=== PATIENT | female | born 1990 | race Caucasian/White ===

== ENCOUNTER 2017-03-22 00:24 | Emergency (ER) | payer MEDICAID ==
[2017-03-22] MEDS ORDERED: Doxycycline 100 MG Tab PO ONE ×2 (00:51→01:03)
[2017-03-22] MEDS ORDERED: Ketorolac 60 MG/2 ML SDV IM ONE (00:53)
[2017-03-22 00:54] VITALS: BP 139/90
--- NOTE | 2017-03-22 00:59 | EDM.PDOC ---
ED HPI GENERAL MEDICAL PROBLEM - General Chief Complaint: Headache Stated Complaint: HEAD AND MOUTH PAIN Time Seen by Provider: 03/22/17 00:47 Source of Information: Reports: Patient, Family History Limitations: Reports: No Limitations - History of Present Illness INITIAL COMMENTS - FREE TEXT/NARRATIVE: 26 y.o.w.f -smoker-came to the ed because of headache and gum pain. Pt has no money going to the dentist. Pt stated she hither head at work a few weeks ago. As per her friend, pt was here for same in the past and gets a shot and Abx. No N/v/D or other acute medical issues at this time. Onset: Unknown/Unsure Onset Date: 02/26/17 Onset Time: 10:00 Duration: Week(s): Location: Reports: Head, Face Quality: Reports: Ache Severity: Moderate Improves with: Reports: Cold Therapy Associated Symptoms: Reports: Other (tooth aches) mouth and head Pain Score (Numeric/FACES): 10 - Related Data Allergies Allergy/AdvReac Type Severity Reaction Status Date / Time amoxicillin Allergy Cannot Verified 03/22/17 01:26 Remember azithromycin Allergy Cannot Verified 03/22/17 01:26 [From Zithromax Z-Mehul] Remember cefuroxime axetil Allergy Cannot Verified 03/22/17 01:26 [From Ceftin] Remember ciprofloxacin [From Cipro] Allergy Cannot Verified 03/22/17 01:26 Remember ciprofloxacin HCl Allergy Cannot Verified 03/22/17 01:26 [From Cipro] Remember [place] And Derivatives Allergy Anaphylactic Verified 03/22/17 01:26 Shock dicloxacillin Allergy Cannot Verified 03/22/17 01:26 Remember fluticasone propionate Allergy Cannot Verified 03/22/17 01:26 [From Advair Diskus] Remember guaifenesin Allergy Cannot Verified 03/22/17 01:26 Remember naproxen Allergy Cannot Verified 03/22/17 01:26 Remember omeprazole [From Prilosec] Allergy Cannot Verified 03/22/17 01:26 Remember omeprazole magnesium Allergy Cannot Verified 03/22/17 01:26 [From Prilosec] Remember Penicillins Allergy Cannot Verified 03/22/17 01:26 Remember salmeterol xinafoate Allergy Cannot Verified 03/22/17 01:26 [From Advair Diskus] Remember shellfish derived Allergy Anaphylactic Verified 03/22/17 01:26 Shock Sulfa (Sulfonamide Allergy Cannot Verified 03/22/17 01:26 Antibiotics) Remember venom-honey bee Allergy Anaphylactic Verified 03/22/17 01:26 [bee venom (honey bee)] Shock FLU VACCINE Allergy Cannot Uncoded 03/22/17 01:26 Remember TACO SEASONING Allergy Cannot Uncoded 03/22/17 01:26 Remember Home Meds: Home Meds NK [No Known Home Meds] 03/22/17 [History] Past Medical History Musculoskeletal History: Reports: 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) Other Musculoskeletal History: hx of ankle, hand fractures; knee and foot dislocation Endocrine/Metabolic History: Reports: 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) Other Endocrine/Metabolic History: states that she is always having hypoglycemia - Past Surgical History HEENT Surgical History: Reports: Tonsillectomy GI Surgical History: Reports: Cholecystectomy Social & Family History - Family History Family Medical History: Noncontributory - Tobacco Use Smoking Status *Q: Current Every Day Smoker Years of Tobacco use: 20 Packs/Tins Daily: 1.5 Used Tobacco, but Quit: No Second Hand Smoke Exposure: Yes - Recreational Drug Use Recreational Drug Use: No ED ROS GENERAL - Review of Systems Review Of Systems: See Below Constitutional: Reports: No Symptoms HEENT: Reports: Other (tooth ache) Respiratory: Reports: No Symptoms Cardiovascular: Reports: No Symptoms Endocrine: Reports: No Symptoms GI/Abdominal: Reports: No Symptoms : Reports: No Symptoms Musculoskeletal: Reports: No Symptoms Skin: Reports: No Symptoms Neurological: Reports: No Symptoms Psychiatric: Reports: No Symptoms Hematologic/Lymphatic: Reports: No Symptoms Immunologic: Reports: No Symptoms - Physical Exam Exam: See Below Exam Limited By: No Limitations General Appearance: Alert, WD/WN, No Apparent Distress Eye Exam: Bilateral Eye: Normal Inspection Ears: Normal External Exam Nose: Normal Inspection, Normal Mucosa Throat/Mouth: Other (poor dentition) Head Exam: Atraumatic, Normocephalic Neck: Normal Inspection, Supple, Non-Tender, Full Range of Motion Respiratory/Chest: No Respiratory Distress, Lungs Clear, Normal Breath Sounds, No Accessory Muscle Use Cardiovascular: Normal Peripheral Pulses, Regular Rate, Rhythm, No Edema GI/Abdominal: Normal Bowel Sounds, Soft, Non-Tender, No Organomegaly (Female) Exam: Deferred Rectal (Female) Exam: Deferred Neuro Exam (Abbreviated): Alert, Oriented, CN II-XII Intact, Normal Cognition, Normal Gait, Normal Reflexes, No Motor/Sensory Deficits Back Exam: Normal Inspection, Full Range of Motion Extremities: Normal Inspection, Normal Range of Motion, Non-Tender, No Pedal Edema, Normal Capillary Refill Psychiatric: Normal Affect, Normal Mood Skin Exam: Warm, Dry, Intact, Normal Color, No Rash Course - Vital Signs Text/Narrative:: 26 y.o.w.f -smoker-came to the ed because of headache and gum pain. Pt has no money going to the dentist. Pt stated she hither head at work a few weeks ago. As per her friend, pt was here for same in the past and gets a shot and Abx. No N/v/D or other acute medical issues at this time. PE: Poor dentition. Pt is texting, watching her phone during the entire HPI and physical exam Labs/Imaging: Not indicated Impression: Gingivitis/poor dentition Tx: Doxycyclin, Toradol Reexam: Improved Plan: D/C with instructions Last Recorded V/S: Last Vital Signs Temp 36.9 C 03/22/17 00:47 Pulse 64 03/22/17 00:47 Resp 18 03/22/17 00:47 BP 139/90 03/22/17 00:47 Pulse Ox 99 03/22/17 00:47 - Orders/Labs/Meds Meds: Medications Discontinued Medications Generic Name Dose Route Start Last Admin Trade Name Freq PRN Reason Stop Dose Admin Doxycycline Hyclate 200 mg 03/22/17 00:51 03/22/17 01:08 Vibra-Tabs PO 03/22/17 00:52 200 mg ONETIME ONE Administration Doxycycline Hyclate 1,000 mg 03/22/17 01:03 Vibra-Tabs PO 03/22/17 01:04 .STK-MED ONE Ketorolac Tromethamine 60 mg 03/22/17 00:53 03/22/17 01:00 Toradol IM 03/22/17 00:54 60 mg ONETIME ONE Administration Departure - Departure Time of Disposition: 01:08 Disposition: Home, Self-Care 01 Condition: good Clinical Impression: Gingivitis - Discharge Information Referrals: PCP,None [Primary Care Provider] - Forms: ED Department Discharge, Return to Work/School Form Additional Instructions: Please f/u with your dentition a.s.a.p, please take the meds as recommended, please come back if your symptoms get worse acutely.
== END 2017-03-22 01:15 | disposition home or self-care (01) ==
LOC: FB.ED 00:24
DX: K05.10 Chronic gingivitis, plaque induced (principal); F17.210 Nicotine dependence, cigarettes, uncomplicated; Z90.49 Acquired absence of other specified parts of digestive tract; Z98.890 Other specified postprocedural states; Z88.0 Allergy status to penicillin; Z88.1 Allergy status to other antibiotic agents; Z88.2 Allergy status to sulfonamides; Z88.7 Allergy status to serum and vaccine; Z88.8 Allergy status to other drugs, medicaments and biological substances; Z91.030 Bee allergy status
CPT/HCPCS: 96372; 99282; A9270; J1885

== ENCOUNTER 2017-05-01 16:44 | Emergency (ER) | payer MEDICAID ==
[2017-05-01] MEDS ORDERED: Sodium Chloride 0.9% 1,000 ML IV ONE ×2 (17:07→18:36)
[2017-05-01] MEDS ORDERED: Ondansetron 4 MG/2 ML SDV IVPUSH ONE (17:09)
[2017-05-01] MEDS ORDERED: Pantoprazole 40 MG Vial IVPUSH ONE (17:13)
[2017-05-01] MEDS ORDERED: Ketorolac 30 MG/ML SDV IVPUSH ONE (17:53)
[2017-05-01] MEDS ORDERED: Potassium Chloride 20 MEQ Tab.ER PO ONE (18:37)
--- NOTE | 2017-05-01 18:44 | EDM.PDOC ---
ED HPI GENERAL MEDICAL PROBLEM - General Chief Complaint: Gastrointestinal Problem Stated Complaint: NAUSEA, VOMITING, H/A Time Seen by Provider: 05/01/17 16:50 Source of Information: Reports: Patient History Limitations: Reports: No Limitations - History of Present Illness INITIAL COMMENTS - FREE TEXT/NARRATIVE: 26 y.o.w. Onset: Sudden Onset Date: 05/01/17 Onset Time: 12:00 Location: Reports: Abdomen Quality: Reports: Burning Severity: Moderate Improves with: Reports: Medication Worsens with: Reports: Eating Context: Reports: Other (possible food poisoning) Associated Symptoms: Reports: Loss of Appetite, Nausea/Vomiting Treatments UTILITY SPECIALIST: Reports: Other (see below) (none) - Related Data Allergies Allergy/AdvReac Type Severity Reaction Status Date / Time amoxicillin Allergy Cannot Verified 05/01/17 17:02 Remember azithromycin Allergy Cannot Verified 05/01/17 17:02 [From Zithromax Z-Mehul] Remember cefuroxime axetil Allergy Cannot Verified 05/01/17 17:02 [From Ceftin] Remember ciprofloxacin [From Cipro] Allergy Cannot Verified 05/01/17 17:02 Remember ciprofloxacin HCl Allergy Cannot Verified 05/01/17 17:02 [From Cipro] Remember [place] And Derivatives Allergy Anaphylactic Verified 05/01/17 17:02 Shock dicloxacillin Allergy Cannot Verified 05/01/17 17:02 Remember fluticasone propionate Allergy Cannot Verified 05/01/17 17:02 [From Advair Diskus] Remember guaifenesin Allergy Cannot Verified 05/01/17 17:02 Remember naproxen Allergy Cannot Verified 05/01/17 17:02 Remember omeprazole [From Prilosec] Allergy Cannot Verified 05/01/17 17:02 Remember omeprazole magnesium Allergy Cannot Verified 05/01/17 17:02 [From Prilosec] Remember Penicillins Allergy Cannot Verified 05/01/17 17:02 Remember salmeterol xinafoate Allergy Cannot Verified 05/01/17 17:02 [From Advair Diskus] Remember shellfish derived Allergy Anaphylactic Verified 05/01/17 17:02 Shock Sulfa (Sulfonamide Allergy Cannot Verified 05/01/17 17:02 Antibiotics) Remember venom-honey bee Allergy Anaphylactic Verified 05/01/17 17:02 [bee venom (honey bee)] Shock FLU VACCINE Allergy Cannot Uncoded 05/01/17 17:02 Remember TACO SEASONING Allergy Cannot Uncoded 05/01/17 17:02 Remember Home Meds: Home Meds Ibuprofen [IJP: Ibuprofen] 600 mg PO .EVERY 8 HOURS PRN 05/01/17 [History] Ondansetron [Zofran ODT] 4 mg PO Q6H PRN #10 tab.dis 05/01/17 [Rx] Past Medical History 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: Reports: Asthma Musculoskeletal History: Reports: 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) Other Musculoskeletal History: hx of ankle, hand fractures; knee and foot dislocation Endocrine/Metabolic History: Reports: 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) Other Endocrine/Metabolic History: states that she is always having hypoglycemia - Past Surgical History HEENT Surgical History: Reports: Tonsillectomy GI Surgical History: Reports: Cholecystectomy Neurological Surgical History: Reports: 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) Other Neurological Surgeries/Procedures: states she had fluid drained from her brain one time Social & Family History - Family History Family Medical History: Noncontributory - Tobacco Use Smoking Status *Q: Current Every Day Smoker Years of Tobacco use: 10 Packs/Tins Daily: 1 Used Tobacco, but Quit: No Second Hand Smoke Exposure: Yes - Caffeine Use Caffeine Use: Reports: Energy Drinks - Recreational Drug Use Recreational Drug Use: No Drug Use in Last 12 Months: No Recreational Drug Type: Reports: Cocaine, LSD (Acid) ED ROS GENERAL - Review of Systems Review Of Systems: See Below Constitutional: Reports: No Symptoms, Weakness, Decreased Appetite HEENT: Reports: No Symptoms Respiratory: Reports: No Symptoms Cardiovascular: Reports: No Symptoms Endocrine: Reports: No Symptoms GI/Abdominal: Reports: Nausea, Vomiting : Reports: No Symptoms Musculoskeletal: Reports: No Symptoms Skin: Reports: No Symptoms Neurological: Reports: No Symptoms Psychiatric: Reports: No Symptoms Hematologic/Lymphatic: Reports: No Symptoms Immunologic: Reports: No Symptoms ED EXAM, GI/ABD - Physical Exam Exam: See Below Exam Limited By: No Limitations General Appearance: Alert, WD/WN, Moderate Distress Eyes: Bilateral: Normal Appearance Ears: Normal External Exam, Normal Canal Nose: Normal Inspection, Normal Mucosa Throat/Mouth: Other (poor dentition, dry mucoal membrane) Head: Atraumatic, Normocephalic Neck: Normal Inspection, Supple, Non-Tender, Full Range of Motion Respiratory/Chest: No Respiratory Distress, Lungs Clear, Normal Breath Sounds, Chest Non-Tender Cardiovascular: Normal Peripheral Pulses, Regular Rate, Rhythm GI/Abdominal: Tenderness (epigastric, minor) (Female) Exam: Deferred Rectal (Female) Exam: Deferred Back Exam: Normal Inspection, Full Range of Motion Extremities: Normal Inspection, Normal Range of Motion, Non-Tender, No Pedal Edema Neurological: Alert, Oriented, CN II-XII Intact, Normal Cognition, Normal Gait Psychiatric: Normal Affect, Normal Mood Skin Exam: Warm, Dry, Intact, Normal Color, No Rash Lymphatic: No Adenopathy Course - Vital Signs Last Recorded V/S: Last Vital Signs Temp 36.9 C 05/01/17 17:07 Pulse 80 05/01/17 17:07 Resp 16 05/01/17 16:50 BP 113/73 05/01/17 16:50 Pulse Ox 97 05/01/17 16:50 - Orders/Labs/Meds Orders: Active Orders 24 hr Category Date Time Status Sodium Chloride 0.9% [Normal Saline] 1,000 ml Med 05/01/17 18:36 Active IV .BOLUS Medication Orders Sodium Chloride (Normal Saline) 1,000 mls @ 999 drops/hr IV .BOLUS ONE Stop: 05/02/17 09:36 Last Admin: 05/01/17 18:38 Dose: 999 drops/hr Labs: Laboratory Tests 05/01/17 05/01/17 05/01/17 Range/Units 17:07 17:07 17:07 WBC (4.5-12.0) X10-3/uL RBC (3.23-5.20) x10(6)uL Hgb (11.5-15.5) g/dL Hct (30.0-51.3) % MCV (80-96) fL MCH (27.7-33.6) pg MCHC (32.2-35.4) g/dL RDW (11.5-15.5) % Plt Count (125-369) X10(3)uL MPV (7.4-10.4) fL Neut % (Auto) (46-82) % Lymph % (Auto) (13-37) % [place] % (Auto) (4-12) % Eos % (Auto) (1.0-5.0) % Baso % (Auto) (0-2) % Neut # (Auto) (1.6-8.3) # Lymph # (Auto) (0.6-5.0) # [place] # (Auto) (0.0-1.3) # Eos # (Auto) (0.0-0.8) # Baso # (Auto) (0.0-0.2) # Sodium (135-145) mmol/L Potassium (3.5-5.3) mmol/L Chloride (100-110) mmol/L Carbon Dioxide (23-29) mmol/L BUN (5-20) mg/dL Creatinine (0.6-1.3) mg/dL Est Cr Clr Drug Dosing mL/min Estimated GFR (MDRD) (>60) BUN/Creatinine Ratio (9-20) Glucose (80-116) mg/dL Calcium (8.6-10.2) mg/dL Urine Color Yellow (YELLOW) Urine Appearance Slightly cloudy (CLEAR) Urine pH 5.0 (5.0-6.5) Ur Specific [place] 1.030 H (1.010-1.025) Urine Protein Negative (NEGATIVE) mg/dL Urine Glucose (UA) Normal (NEGATIVE) mg/dL Urine Ketones Negative (NEGATIVE) mg/dL Urine Occult Blood Large H (NEGATIVE) Urine Nitrite Negative (NEGATIVE) Urine Bilirubin Negative (NEGATIVE) Urine Urobilinogen Normal (NEGATIVE) mg/dL Ur Leukocyte Esterase Negative (NEGATIVE) Urine RBC 5-10 (0) Urine WBC 0-5 (0) Ur Squamous Epith Cells Few H (NS,R,O) Urine Bacteria Few H (NS) Urine HCG, Qual Negative (NEGATIVE) Urine Opiates Screen Negative (NEGATIVE) Ur Oxycodone Screen Negative (NEGATIVE) Ur Propoxyphene Screen Negative (NEGATIVE) Ur Barbituates Screen Negative (NEGATIVE) Ur Tricyclics Screen Negative (NEGATIVE) Ur Phencyclidine Scrn Negative (NEGATIVE) Ur Amphetamine Screen Negative (NEGATIVE) Urine MDMA Screen Negative (NEGATIVE) U Benzodiazepines Scrn Negative (NEGATIVE) U Cocaine Metab Screen Negative (NEGATIVE) U Marijuana (THC) Screen Negative (NEGATIVE) 05/01/17 05/01/17 Range/Units 17:30 17:30 WBC 11.0 (4.5-12.0) X10-3/uL RBC 4.27 (3.23-5.20) x10(6)uL Hgb 12.3 (11.5-15.5) g/dL Hct 37.1 (30.0-51.3) % MCV 86.9 (80-96) fL MCH 28.9 (27.7-33.6) pg MCHC 33.2 (32.2-35.4) g/dL RDW 13.8 (11.5-15.5) % Plt Count 277 (125-369) X10(3)uL MPV 9.2 (7.4-10.4) fL Neut % (Auto) 57.1 (46-82) % Lymph % (Auto) 32.4 (13-37) % [place] % (Auto) 8.1 (4-12) % Eos % (Auto) 2 (1.0-5.0) % Baso % (Auto) 1 (0-2) % Neut # (Auto) 6.2 (1.6-8.3) # Lymph # (Auto) 3.6 (0.6-5.0) # [place] # (Auto) 0.9 (0.0-1.3) # Eos # (Auto) 0.2 (0.0-0.8) # Baso # (Auto) 0.1 (0.0-0.2) # Sodium 140 (135-145) mmol/L Potassium 3.3 L (3.5-5.3) mmol/L Chloride 107 (100-110) mmol/L Carbon Dioxide 27 (23-29) mmol/L BUN 10 (5-20) mg/dL Creatinine 0.5 L (0.6-1.3) mg/dL Est Cr Clr Drug Dosing 188.90 mL/min Estimated GFR (MDRD) > 60 (>60) BUN/Creatinine Ratio 20.0 (9-20) Glucose 90 (80-116) mg/dL Calcium 8.9 (8.6-10.2) mg/dL Urine Color (YELLOW) Urine Appearance (CLEAR) Urine pH (5.0-6.5) Ur Specific [place] (1.010-1.025) Urine Protein (NEGATIVE) mg/dL Urine Glucose (UA) (NEGATIVE) mg/dL Urine Ketones (NEGATIVE) mg/dL Urine Occult Blood (NEGATIVE) Urine Nitrite (NEGATIVE) Urine Bilirubin (NEGATIVE) Urine Urobilinogen (NEGATIVE) mg/dL Ur Leukocyte Esterase (NEGATIVE) Urine RBC (0) Urine WBC (0) Ur Squamous Epith Cells (NS,R,O) Urine Bacteria (NS) Urine HCG, Qual (NEGATIVE) Urine Opiates Screen (NEGATIVE) Ur Oxycodone Screen (NEGATIVE) Ur Propoxyphene Screen (NEGATIVE) Ur Barbituates Screen (NEGATIVE) Ur Tricyclics Screen (NEGATIVE) Ur Phencyclidine Scrn (NEGATIVE) Ur Amphetamine Screen (NEGATIVE) Urine MDMA Screen (NEGATIVE) U Benzodiazepines Scrn (NEGATIVE) U Cocaine Metab Screen (NEGATIVE) U Marijuana (THC) Screen (NEGATIVE) Meds: Medications Generic Name Dose Route Start Last Admin Trade Name Freq PRN Reason Stop Dose Admin Sodium Chloride 1,000 mls @ 999 drops/hr 05/01/17 18:36 05/01/17 18:38 Normal Saline IV 05/02/17 09:36 999 drops/hr .BOLUS ONE Administration Discontinued Medications Generic Name Dose Route Start Last Admin Trade Name Freq PRN Reason Stop Dose Admin Sodium Chloride 1,000 mls @ 999 mls/hr 05/01/17 17:07 05/01/17 17:30 Normal Saline IV 05/01/17 18:07 999 mls/hr .BOLUS ONE Administration Ketorolac Tromethamine 30 mg 05/01/17 17:53 05/01/17 18:00 Toradol IVPUSH 05/01/17 17:54 30 mg ONETIME ONE Administration Ondansetron HCl 8 mg 05/01/17 17:09 05/01/17 17:30 Zofran IVPUSH 05/01/17 17:10 8 mg ONETIME ONE Administration Pantoprazole Sodium 40 mg 05/01/17 17:13 05/01/17 17:36 Protonix Iv IVPUSH 05/01/17 17:14 40 mg ONETIME ONE Administration Potassium Chloride 40 meq 05/01/17 18:37 05/01/17 18:45 Klor-Con M20 PO 05/01/17 18:38 40 meq ONETIME ONE Administration Departure - Departure Time of Disposition: 18:46 Disposition: Home, Self-Care 01 Condition: Good Clinical Impression: Dehydration, Hypokalemia Acute gastritis without bleeding Qualifiers: Gastritis type: other gastritis Qualified Code(s): K29.00 - Acute gastritis without bleeding - Discharge Information Prescriptions: Ondansetron [Zofran ODT] 4 mg PO Q6H PRN #10 tab.dis PRN Reason: N/V Referrals: PCP,None [Primary Care Provider] - Forms: ED Department Discharge Additional Instructions: Please diet as tolerated, please increase water increase, please follow up, please come back if your symptoms get wore acutely. - My Orders Last 24 Hours: My Active Orders 05/01/17 18:36 Sodium Chloride 0.9% [Normal Saline] 1,000 ml IV .BOLUS - Assessment/Plan Last 24 Hours: My Active Orders 05/01/17 18:36 Sodium Chloride 0.9% [Normal Saline] 1,000 ml IV .BOLUS
[2017-05-01 19:49] VITALS: BP 120/88
== END 2017-05-01 19:48 | disposition home or self-care (01) ==
LOC: FB.ED 16:44
DX: K29.00 Acute gastritis without bleeding (principal); E87.6 Hypokalemia; E86.0 Dehydration; J45.909 Unspecified asthma, uncomplicated; F17.210 Nicotine dependence, cigarettes, uncomplicated; Z88.1 Allergy status to other antibiotic agents; Z88.0 Allergy status to penicillin; Z88.2 Allergy status to sulfonamides; Z88.8 Allergy status to other drugs, medicaments and biological substances; Z98.890 Other specified postprocedural states; Z90.49 Acquired absence of other specified parts of digestive tract; Z90.89 Acquired absence of other organs
CPT/HCPCS: 36415; 80048; 80305; 81001; 81025; 85025; 96361; 96374; 96375; 99284; A9270; C9113; J1885; J2405; J7040

== ENCOUNTER 2017-06-05 16:48 | Emergency (ER) | payer OTHER, MEDICAID ==
--- NOTE | 2017-06-05 17:01 | EDM.PDOC ---
ED HPI GENERAL MEDICAL PROBLEM - General Stated Complaint: BODY ACHES, HEAD ACHE, NAUSEOUS Time Seen by Provider: 06/05/17 17:01 Source of Information: Reports: Patient History Limitations: Reports: No Limitations - History of Present Illness INITIAL COMMENTS - FREE TEXT/NARRATIVE: 27 yo F presenting to the ER with 1-2 day h/o body aches, joint aches, fatigue, generalized weakness and feeling unwell. Reports that symptoms started insidiously and got progressively worse. No chest pain, abdominal pain but does report right Flank/ Lower back pain. [place] nauseous and vomited x 1 Has been feeling unwell. Presented to the ER on account of worsening of symptoms. Onset: Today Onset Date: 06/05/17 Duration: Day(s): Location: Reports: Generalized Quality: Reports: Ache Severity: Moderate Associated Symptoms: Reports: Cough, Loss of Appetite, Malaise, Nausea/Vomiting , Weakness RUQ abdomen Pain Score (Numeric/FACES): 4 - Related Data Allergies Allergy/AdvReac Type Severity Reaction Status Date / Time amoxicillin Allergy Cannot Verified 06/05/17 17:19 Remember azithromycin Allergy Cannot Verified 06/05/17 17:19 [From Zithromax Z-Mehul] Remember cefuroxime axetil Allergy Cannot Verified 06/05/17 17:19 [From Ceftin] Remember ciprofloxacin [From Cipro] Allergy Cannot Verified 06/05/17 17:19 Remember ciprofloxacin HCl Allergy Cannot Verified 06/05/17 17:19 [From Cipro] Remember [place] And Derivatives Allergy Anaphylactic Verified 06/05/17 17:19 Shock dicloxacillin Allergy Cannot Verified 06/05/17 17:19 Remember fluticasone propionate Allergy Cannot Verified 06/05/17 17:19 [From Advair Diskus] Remember guaifenesin Allergy Cannot Verified 06/05/17 17:19 Remember naproxen Allergy Cannot Verified 06/05/17 17:19 Remember omeprazole [From Prilosec] Allergy Cannot Verified 06/05/17 17:19 Remember omeprazole magnesium Allergy Cannot Verified 06/05/17 17:19 [From Prilosec] Remember Penicillins Allergy Cannot Verified 06/05/17 17:19 Remember salmeterol xinafoate Allergy Cannot Verified 06/05/17 17:19 [From Advair Diskus] Remember shellfish derived Allergy Anaphylactic Verified 06/05/17 17:19 Shock Sulfa (Sulfonamide Allergy Cannot Verified 06/05/17 17:19 Antibiotics) Remember venom-honey bee Allergy Anaphylactic Verified 06/05/17 17:19 [bee venom (honey bee)] Shock FLU VACCINE Allergy Cannot Uncoded 06/05/17 17:19 Remember TACO SEASONING Allergy Cannot Uncoded 06/05/17 17:19 Remember Home Meds: Home Meds Ibuprofen [IJP: Ibuprofen] 600 mg PO .EVERY 8 HOURS PRN 05/01/17 [History] Ondansetron [Zofran ODT] 4 mg PO Q6H PRN #10 tab.dis 05/01/17 [Rx] Past Medical History 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: Reports: Asthma Musculoskeletal History: Reports: 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) Other Musculoskeletal History: hx of ankle, hand fractures; knee and foot dislocation Endocrine/Metabolic History: Reports: 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) Other Endocrine/Metabolic History: states that she is always having hypoglycemia - Past Surgical History HEENT Surgical History: Reports: Tonsillectomy GI Surgical History: Reports: Cholecystectomy Neurological Surgical History: Reports: 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) Other Neurological Surgeries/Procedures: states she had fluid drained from her brain one time Social & Family History - Family History Family Medical History: Noncontributory - Tobacco Use Smoking Status *Q: Current Every Day Smoker Years of Tobacco use: 10 Packs/Tins Daily: 1 Used Tobacco, but Quit: No Second Hand Smoke Exposure: Yes - Caffeine Use Caffeine Use: Reports: Energy Drinks - Recreational Drug Use Recreational Drug Use: No Drug Use in Last 12 Months: No Recreational Drug Type: Reports: Cocaine, LSD (Acid) ED ROS GENERAL - Review of Systems Review Of Systems: See Below Constitutional: Reports: Malaise, Weakness, Fatigue, Decreased Appetite HEENT: Reports: No Symptoms Respiratory: Reports: No Symptoms Cardiovascular: Reports: No Symptoms Endocrine: Reports: No Symptoms GI/Abdominal: Reports: Nausea, Vomiting : Reports: No Symptoms Musculoskeletal: Reports: Muscle Pain, Other (body aches) Skin: Reports: No Symptoms Neurological: Reports: No Symptoms Psychiatric: Reports: No Symptoms Hematologic/Lymphatic: Reports: No Symptoms Immunologic: Reports: No Symptoms ED EXAM, GENERAL - Physical Exam Exam: See Below Exam Limited By: No Limitations General Appearance: Alert, WD/WN, No Apparent Distress Eye Exam: Bilateral Eye: EOMI Ears: Normal External Exam, Normal Canal, Hearing Grossly Normal Nose: Normal Inspection, Normal Mucosa Throat/Mouth: Normal Inspection, Normal Lips, Normal Oropharynx, No Airway Compromise Neck: Normal Inspection, Supple, Non-Tender Respiratory/Chest: No Respiratory Distress, Lungs Clear Cardiovascular: Normal Peripheral Pulses, Regular Rate, Rhythm, No Edema, No JVD GI/Abdominal: Normal Bowel Sounds, Soft, Non-Tender, No Organomegaly (Female) Exam: Deferred Rectal (Female) Exam: Deferred Back Exam: Normal Inspection, Full Range of Motion Extremities: Normal Inspection, Normal Range of Motion, Non-Tender Neurological: Alert, Oriented, CN II-XII Intact, Normal Cognition, Normal Gait Psychiatric: Normal Affect, Normal Mood Skin Exam: Warm Course - Vital Signs Last Recorded V/S: Last Vital Signs Temp 36.8 C 06/05/17 16:50 Pulse 58 L 06/05/17 16:50 Resp 16 06/05/17 16:50 BP 114/63 06/05/17 16:50 Pulse Ox 99 06/05/17 16:50 - Orders/Labs/Meds Labs: Laboratory Tests 06/05/17 06/05/17 06/05/17 Range/Units 17:20 17:20 18:20 WBC 14.3 H (4.5-12.0) X10-3/uL RBC 4.37 (3.23-5.20) x10(6)uL Hgb 13.0 (11.5-15.5) g/dL Hct 37.9 (30.0-51.3) % MCV 86.7 (80-96) fL MCH 29.8 (27.7-33.6) pg MCHC 34.4 (32.2-35.4) g/dL RDW 13.3 (11.5-15.5) % Plt Count 271 (125-369) X10(3)uL MPV 8.7 (7.4-10.4) fL Neut % (Auto) 73.6 (46-82) % Lymph % (Auto) 15.7 (13-37) % [place] % (Auto) 8.8 (4-12) % Eos % (Auto) 2 (1.0-5.0) % Baso % (Auto) 0 (0-2) % Neut # (Auto) 10.5 H (1.6-8.3) # Lymph # (Auto) 2.3 (0.6-5.0) # [place] # (Auto) 1.3 (0.0-1.3) # Eos # (Auto) 0.2 (0.0-0.8) # Baso # (Auto) 0.0 (0.0-0.2) # Sodium 139 (135-145) mmol/L Potassium 3.3 L (3.5-5.3) mmol/L Chloride 108 (100-110) mmol/L Carbon Dioxide 25 (23-29) mmol/L BUN 17 (5-20) mg/dL Creatinine 1.2 (0.6-1.3) mg/dL Est Cr Clr Drug Dosing TNP Estimated GFR (MDRD) 53 L (>60) BUN/Creatinine Ratio 14.2 (9-20) Glucose 91 (80-116) mg/dL Calcium 9.4 (8.6-10.2) mg/dL Total Bilirubin 0.6 (0.1-1.3) mg/dL AST 17 D (5-27) IU/L ALT 12 L (14-26) IU/L Alkaline Phosphatase 63 (56-112) IU/L C-Reactive Protein < 0.5 (0.0-1.0) mg/dL Total Protein 6.3 (6.0-8.0) g/dL Albumin 3.8 (3.5-5.2) g/dL Globulin 2.5 g/dL Albumin/Globulin Ratio 1.5 Urine Color Yellow (YELLOW) Urine Appearance Clear (CLEAR) Urine pH 5.0 (5.0-6.5) Ur Specific [place] 1.015 (1.010-1.025) Urine Protein Negative (NEGATIVE) mg/dL Urine Glucose (UA) Normal (NEGATIVE) mg/dL Urine Ketones Negative (NEGATIVE) mg/dL Urine Occult Blood Negative (NEGATIVE) Urine Nitrite Negative (NEGATIVE) Urine Bilirubin Negative (NEGATIVE) Urine Urobilinogen Normal (NEGATIVE) mg/dL Ur Leukocyte Esterase Negative (NEGATIVE) Meds: Medications Discontinued Medications Generic Name Dose Route Start Last Admin Trade Name Freq PRN Reason Stop Dose Admin Sodium Chloride 1,000 mls @ 1,000 mls/hr 06/05/17 17:15 06/05/17 17:37 Normal Saline IV 06/05/17 18:14 1,000 mls/hr .BOLUS ONE Administration Ketorolac Tromethamine 30 mg 06/05/17 17:17 06/05/17 17:40 Toradol IVPUSH 06/05/17 17:18 30 mg ONETIME ONE Administration Ondansetron HCl 4 mg 06/05/17 17:17 06/05/17 17:37 Zofran IVPUSH 06/05/17 17:18 4 mg ONETIME ONE Administration Potassium Chloride 40 meq 06/05/17 18:08 06/05/17 18:18 Klor-Con M20 PO 06/05/17 18:09 40 meq ONETIME ONE Administration Departure - Departure Time of Disposition: 18:42 Disposition: Home, Self-Care 01 Condition: Good Clinical Impression: Vomiting, Body aches, Hypokalemia - Discharge Information Instructions: Nausea, Adult, Muscle Pain, Adult Referrals: PCP,None [Primary Care Provider] - Forms: ED Department Discharge Additional Instructions: Follow with PCP Ibuprofen for pain Return to work on 06/07/2017 Return to the ER if symptoms worsen Call your Physician or Return to Emergency Department if: * Your condition worsens in any way. * You develop fever greater than 100.4. * You have vomitting that does not stop with medications. * You have pain that is not controlled with medications.
[2017-06-05] MEDS ORDERED: Sodium Chloride 0.9% 1,000 ML IV ONE (17:15)
[2017-06-05] MEDS ORDERED: Ketorolac 30 MG/ML SDV IVPUSH ONE (17:17)
[2017-06-05] MEDS ORDERED: Ondansetron 4 MG/2 ML SDV IVPUSH ONE (17:17)
[2017-06-05] MEDS ORDERED: Potassium Chloride 20 MEQ Tab.ER PO ONE (18:08)
[2017-06-05 18:45] VITALS: BP 122/75
== END 2017-06-05 18:50 | disposition home or self-care (01) ==
LOC: FB.ED 16:48
DX: E87.6 Hypokalemia (principal); R11.10 Vomiting, unspecified; R52 Pain, unspecified; J45.909 Unspecified asthma, uncomplicated; F17.210 Nicotine dependence, cigarettes, uncomplicated; Z88.1 Allergy status to other antibiotic agents; Z88.8 Allergy status to other drugs, medicaments and biological substances; Z88.2 Allergy status to sulfonamides; Z91.030 Bee allergy status; Z88.0 Allergy status to penicillin; Z98.890 Other specified postprocedural states; Z90.49 Acquired absence of other specified parts of digestive tract
CPT/HCPCS: 36415; 80053; 81003; 85025; 86140; 96361; 96374; 96375; 99283; A9270; J1885; J2405; J7040

== ENCOUNTER 2017-09-09 23:34 | Emergency (ER) | payer OTHER ==
[2017-09-10] MEDS ORDERED: Diphtheria,Pertussis(Acell),Tetanus Vaccine 0.5 ML SDV IM ONE (00:12)
--- NOTE | 2017-09-10 00:22 | EDM.PDOC ---
ED HPI GENERAL MEDICAL PROBLEM - General Stated Complaint: LACERATION LEFT FINGER Time Seen by Provider: 09/10/17 00:06 Source of Information: Reports: Patient History Limitations: Reports: No Limitations - History of Present Illness INITIAL COMMENTS - FREE TEXT/NARRATIVE: c/o cut on thumb pt cut L thumb on a machine, last Td unknown - Related Data Allergies Allergy/AdvReac Type Severity Reaction Status Date / Time amoxicillin Allergy Cannot Verified 09/10/17 00:14 Remember azithromycin Allergy Cannot Verified 09/10/17 00:14 [From Zithromax Z-Mehul] Remember cefuroxime axetil Allergy Cannot Verified 09/10/17 00:14 [From Ceftin] Remember ciprofloxacin [From Cipro] Allergy Cannot Verified 09/10/17 00:14 Remember ciprofloxacin HCl Allergy Cannot Verified 09/10/17 00:14 [From Cipro] Remember [place] And Derivatives Allergy Anaphylactic Verified 09/10/17 00:14 Shock dicloxacillin Allergy Cannot Verified 09/10/17 00:14 Remember fluticasone propionate Allergy Cannot Verified 09/10/17 00:14 [From Advair Diskus] Remember guaifenesin Allergy Cannot Verified 09/10/17 00:14 Remember naproxen Allergy Cannot Verified 09/10/17 00:14 Remember omeprazole [From Prilosec] Allergy Cannot Verified 09/10/17 00:14 Remember omeprazole magnesium Allergy Cannot Verified 09/10/17 00:14 [From Prilosec] Remember Penicillins Allergy Cannot Verified 09/10/17 00:14 Remember salmeterol xinafoate Allergy Cannot Verified 09/10/17 00:14 [From Advair Diskus] Remember shellfish derived Allergy Anaphylactic Verified 09/10/17 00:14 Shock Sulfa (Sulfonamide Allergy Cannot Verified 09/10/17 00:14 Antibiotics) Remember venom-honey bee Allergy Anaphylactic Verified 09/10/17 00:14 [bee venom (honey bee)] Shock FLU VACCINE Allergy Cannot Uncoded 06/05/17 17:19 Remember TACO SEASONING Allergy Cannot Uncoded 06/05/17 17:19 Remember Home Meds: Home Meds Ondansetron [Zofran ODT] 4 mg PO Q6H PRN #10 tab.dis 05/01/17 [Rx] Levofloxacin [Levaquin] 500 mg PO Q24H 09/10/17 [History] Past Medical History 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: Reports: Asthma COMMUNICATION SPEC History: Reports: Musculoskeletal History: Reports: 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) Other Musculoskeletal History: hx of ankle, hand fractures; knee and foot dislocation Endocrine/Metabolic History: Reports: 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) Other Endocrine/Metabolic History: states that she is always having hypoglycemia - Past Surgical History HEENT Surgical History: Reports: Tonsillectomy GI Surgical History: Reports: Cholecystectomy Neurological Surgical History: Reports: 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) Other Neurological Surgeries/Procedures: states she had fluid drained from her brain one time Social & Family History - Family History Family Medical History: Noncontributory - Tobacco Use Smoking Status *Q: Current Every Day Smoker Years of Tobacco use: 10 Packs/Tins Daily: 1 Used Tobacco, but Quit: No Second Hand Smoke Exposure: Yes - Caffeine Use Caffeine Use: Reports: Energy Drinks - Recreational Drug Use Recreational Drug Use: No Drug Use in Last 12 Months: No Recreational Drug Type: Reports: Cocaine, LSD (Acid) ED ROS GENERAL - Review of Systems Review Of Systems: See Below Constitutional: Reports: No Symptoms HEENT: Reports: No Symptoms Respiratory: Reports: No Symptoms Cardiovascular: Reports: No Symptoms Endocrine: Reports: No Symptoms GI/Abdominal: Reports: No Symptoms : Reports: No Symptoms Musculoskeletal: Reports: No Symptoms Skin: Reports: Wound Neurological: Reports: No Symptoms Psychiatric: Reports: No Symptoms Hematologic/Lymphatic: Reports: No Symptoms Immunologic: Reports: No Symptoms ED EXAM, SKIN/RASH Exam: See Below Exam Limited By: No Limitations General Appearance: Alert, WD/WN, No Apparent Distress Extremities: Other (L thumb with abrasion but no lac on lateral aspect of nail, parallel to lateral nail margin, nail intact, some minimal old bleeding) Course - Orders/Labs/Meds Orders: Active Orders 24 hr Category Date Time Status Vaccines to be Administered [RC] PER UNIT ROUTINE Care 09/10/17 00:12 Ordered Meds: Medications Discontinued Medications Generic Name Dose Route Start Last Admin Trade Name Freq PRN Reason Stop Dose Admin Diphtheria/Tetanus/Acell Pertussis 0.5 ml 09/10/17 00:12 Adacel IM 09/10/17 00:13 .ONCE ONE Departure - Departure Time of Disposition: 00:20 Disposition: Home, Self-Care 01 Condition: Good Clinical Impression: Abrasion of thumb, left - Discharge Information Instructions: Abrasion Additional Instructions: Keep area clean and dry and covered with a bandaid for 5 days. See a physician the same day for any increase in redness, swelling, pain, warmth , fever or drainage. Call your Physician or Return to Emergency Department if: * Your condition worsens in any way. * You develop fever greater than 100.4. * You have vomitting that does not stop with medications. * You have pain that is not controlled with medications. - My Orders Last 24 Hours: My Active Orders 09/10/17 00:12 Vaccines to be Administered [RC] PER UNIT ROUTINE - Assessment/Plan Last 24 Hours: My Active Orders 09/10/17 00:12 Vaccines to be Administered [RC] PER UNIT ROUTINE
[2017-09-10 00:45] VITALS: BP 114/68
== END 2017-09-10 00:41 | disposition home or self-care (01) ==
LOC: FB.ED 23:34
DX: S60.312A Abrasion of left thumb, initial encounter (principal); F17.210 Nicotine dependence, cigarettes, uncomplicated; Z23 Encounter for immunization; Z88.0 Allergy status to penicillin; Z88.2 Allergy status to sulfonamides; Z88.7 Allergy status to serum and vaccine; Z88.8 Allergy status to other drugs, medicaments and biological substances; Z88.1 Allergy status to other antibiotic agents; Z91.030 Bee allergy status; Z91.018 Allergy to other foods; Z91.013 Allergy to seafood; W31.9XXA Contact with unspecified machinery, initial encounter
CPT/HCPCS: 90471; 90715; 99282

== ENCOUNTER 2017-09-14 14:16 | Emergency (ER) | payer OTHER ==
[2017-09-14] MEDS ORDERED: Sodium Chloride 0.9% 10 ML Syringe FLUSH PRN (14:41)
[2017-09-14] MEDS ORDERED: Sodium Chloride 0.9% 1,000 ML IV ONE (14:42)
[2017-09-14] MEDS ORDERED: Ondansetron 4 MG/2 ML SDV IVPUSH ONE (14:43)
[2017-09-14] MEDS ORDERED: HYDROmorphone 2 MG/ML SDV IM ONE (14:44)
[2017-09-14] MEDS ORDERED: Iopamidol 755 Mg/ML 100 ML Bottle IV ONE (15:16)
[2017-09-14] MEDS ORDERED: Diatrizoate Meglumine/Diatrizoate Sodium 37% 30 ML Bottle PO ONE (15:16)
[2017-09-14 17:06] VITALS: BP 126/95
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
== END 2017-09-14 17:06 | disposition home or self-care (01) ==
LOC: FB.ED 14:16
DX: N83.209 Unspecified ovarian cyst, unspecified side (principal); F17.210 Nicotine dependence, cigarettes, uncomplicated; Z88.1 Allergy status to other antibiotic agents; Z88.8 Allergy status to other drugs, medicaments and biological substances; Z88.2 Allergy status to sulfonamides; Z88.7 Allergy status to serum and vaccine
CPT/HCPCS: 36415; 74177; 80053; 81001; 84702; 85025; 96361; 96374; 96375; 99284; A9270; J1170; J2405; J7040; J7050; Q9967; 96372

== ENCOUNTER 2017-11-24 21:20 | Emergency (ER) | payer MEDICAID, OTHER ==
[2017-11-24 21:53] VITALS: BP 92/79
[2017-11-24] MEDS ORDERED: Ketorolac 60 MG/2 ML SDV IM ONE (21:55)
[2017-11-24] MEDS ORDERED: Albuterol 8 GM Inhaler INH ONE (21:58)
--- NOTE | 2017-11-25 05:27 | ER ---
DATE SEEN: 11/24/2017 CHIEF COMPLAINT: Body aches. HISTORY OF PRESENT ILLNESS: This is a 27-year-old female complaining of myalgias, fever, cough, difficulty breathing, and ear pain, symptoms starting this morning insidiously. REVIEW OF SYSTEMS: No nausea or vomiting, and no chest pain. PAST MEDICAL HISTORY: Asthma. ALLERGIES: She has an extensive list of allergies. Please see Epic. PHYSICAL EXAMINATION: GENERAL: She is not in any cardiopulmonary distress. VITAL SIGNS: Her blood pressure and temperature are normal. She has oxygenation of 100%. ENT: Negative. NECK: Normal. CHEST: Clear. CARDIOVASCULAR: Normal. IMPRESSION: 1. Viral syndrome. 2. History of asthma. PLAN: 1. Ketorolac 60 mg IM. 2. ProAir 1 to 2 puffs every 6 hours p.r.n. 3. I advised to follow up in 24 to 48 hours with PCP. In the meantime, supportive therapy with fluids, ibuprofen or Tylenol as needed. TIME SEEN: 2155 hours. /[id number] ZANDRA/AMADOU
== END 2017-11-24 22:03 | disposition home or self-care (01) ==
LOC: FB.ED 21:20
DX: B34.9 Viral infection, unspecified (principal); J45.909 Unspecified asthma, uncomplicated
CPT/HCPCS: 96372; 99283; A9270; J1885

== ENCOUNTER 2017-12-21 17:44 | Emergency (ER) | payer MEDICAID ==
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
[2017-12-21] MEDS ORDERED: Ibuprofen 600 MG Tab PO ONE (18:06)
[2017-12-21 18:49] VITALS: BP 118/57
== END 2017-12-21 18:51 | disposition home or self-care (01) ==
LOC: FB.ED 17:44
DX: G44.209 Tension-type headache, unspecified, not intractable (principal); J01.90 Acute sinusitis, unspecified; F17.210 Nicotine dependence, cigarettes, uncomplicated; V89.2XXA Person injured in unspecified motor-vehicle accident, traffic, initial encounter; Z88.1 Allergy status to other antibiotic agents; Z88.8 Allergy status to other drugs, medicaments and biological substances; Z88.2 Allergy status to sulfonamides; Z91.013 Allergy to seafood; Z91.018 Allergy to other foods; Z88.7 Allergy status to serum and vaccine; Z91.09 Other allergy status, other than to drugs and biological substances; Z91.030 Bee allergy status
CPT/HCPCS: 70450; 99283; A9270

== ENCOUNTER 2017-12-28 00:20 | Emergency (ER) | payer SELFPAY ==
[2017-12-28] MEDS ORDERED: Ketorolac 60 MG/2 ML SDV IM ONE (00:42)
[2017-12-28 00:43] VITALS: BP 117/71
--- NOTE | 2017-12-28 01:23 | EDM.PDOC ---
ED HPI GENERAL MEDICAL PROBLEM - General Chief Complaint: Abdominal Pain Stated Complaint: GENERAL Time Seen by Provider: 12/28/17 00:20 Source of Information: Reports: Patient, Family History Limitations: Reports: No Limitations - History of Present Illness INITIAL COMMENTS - FREE TEXT/NARRATIVE: 27 y.o.w.f -smoker-came to the ed due to pain at her right lower abd. which she had before. She has her monthly period. Pt was diagnosed with an ovarian cyst by US in the past. It is the same as she has with any menstrual period. No N/V/ D or any other acute medical issues. BP 117/71 pulse 74 RR 18 Temp 36.6 O2 sat 98% on RA. Onset Date: 12/27/17 Onset Time: 14:00 Duration: Hour(s): Location: Reports: Abdomen, Pelvis Quality: Reports: Dull, Pressure, Same as Previous Episode, Throbbing Severity: Moderate Improves with: Reports: Rest Worsens with: Reports: Movement Context: Reports: Other (H/O of an ovarian cyst, had multiple w/ups for same, No trauma S/O Cholecystectomy) abdomen Pain Score (Numeric/FACES): 10 - Related Data Allergies Allergy/AdvReac Type Severity Reaction Status Date / Time amoxicillin Allergy Cannot Verified 12/28/17 00:43 Remember azithromycin Allergy Cannot Verified 12/28/17 00:43 [From Zithromax Z-Mehul] Remember cefuroxime axetil Allergy Cannot Verified 12/28/17 00:43 [From Ceftin] Remember ciprofloxacin [From Cipro] Allergy Cannot Verified 12/28/17 00:43 Remember ciprofloxacin HCl Allergy Cannot Verified 12/28/17 00:43 [From Cipro] Remember [place] And Derivatives Allergy Anaphylactic Verified 12/28/17 00:43 Shock dicloxacillin Allergy Cannot Verified 12/28/17 00:43 Remember fluticasone propionate Allergy Cannot Verified 12/28/17 00:43 [From Advair Diskus] Remember guaifenesin Allergy Cannot Verified 12/28/17 00:43 Remember naproxen Allergy Cannot Verified 12/28/17 00:43 Remember omeprazole [From Prilosec] Allergy Cannot Verified 12/28/17 00:43 Remember omeprazole magnesium Allergy Cannot Verified 12/28/17 00:43 [From Prilosec] Remember Penicillins Allergy Cannot Verified 12/28/17 00:43 Remember salmeterol xinafoate Allergy Cannot Verified 12/28/17 00:43 [From Advair Diskus] Remember shellfish derived Allergy Anaphylactic Verified 12/28/17 00:43 Shock Sulfa (Sulfonamide Allergy Cannot Verified 12/28/17 00:43 Antibiotics) Remember venom-honey bee Allergy Anaphylactic Verified 12/28/17 00:43 [bee venom (honey bee)] Shock FLU VACCINE Allergy Cannot Uncoded 06/05/17 17:19 Remember TACO SEASONING Allergy Cannot Uncoded 06/05/17 17:19 Remember Home Meds: Home Meds NK [No Known Home Meds] 12/28/17 [History] Past Medical History HEENT History: Reports: 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) Other HEENT History: multi caries broken black teeth front upper 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: Reports: Asthma ARNP History: Reports: , 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) Other OB/BYN History: ovarion cyst Musculoskeletal History: Reports: 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) Other Musculoskeletal History: hx of ankle, hand fractures; knee and foot dislocation Endocrine/Metabolic History: Reports: 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) Other Endocrine/Metabolic History: states that she is always having hypoglycemia - Infectious Disease History Infectious Disease History: Reports: Chicken Pox, Measles, Mumps - Past Surgical History HEENT Surgical History: Reports: Tonsillectomy GI Surgical History: Reports: Cholecystectomy Neurological Surgical History: Reports: 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) Other Neurological Surgeries/Procedures: states she had fluid drained from her brain one time Social & Family History - Family History Family Medical History: Noncontributory - Tobacco Use Smoking Status *Q: Current Every Day Smoker Years of Tobacco use: 20 Packs/Tins Daily: 1 Used Tobacco, but Quit: No Second Hand Smoke Exposure: Yes - Caffeine Use Caffeine Use: Reports: Coffee - Recreational Drug Use Recreational Drug Use: No Drug Use in Last 12 Months: No Recreational Drug Type: Reports: Cocaine, LSD (Acid) ED ROS GENERAL - Review of Systems Review Of Systems: See Below Constitutional: Reports: No Symptoms HEENT: Reports: No Symptoms Respiratory: Reports: No Symptoms Cardiovascular: Reports: No Symptoms Endocrine: Reports: No Symptoms GI/Abdominal: Reports: Abdominal Pain (RLQ abd/pelvis) : Reports: No Symptoms Musculoskeletal: Reports: No Symptoms Skin: Reports: No Symptoms Neurological: Reports: No Symptoms Psychiatric: Reports: No Symptoms Hematologic/Lymphatic: Reports: No Symptoms Immunologic: Reports: No Symptoms ED EXAM, RENAL/ - Physical Exam Exam: See Below Exam Limited By: No Limitations General Appearance: Alert, WD/WN, No Apparent Distress Eye Exam: Bilateral Eye: Normal Inspection Ears: Normal External Exam Nose: Normal Inspection, Normal Mucosa Throat/Mouth: Normal Inspection Head: Atraumatic, Normocephalic Neck: Normal Inspection, Supple, Non-Tender, Full Range of Motion Respiratory/Chest: No Respiratory Distress, Lungs Clear Cardiovascular: Normal Peripheral Pulses, Regular Rate, Rhythm, No Edema, No Rub GI/Abdominal: Normal Bowel Sounds, Tender (Right lower abd as it was in the past , US showed an ovarian cyst) (Female) Exam: Deferred Rectal (Female) Exam: Deferred Back Exam: Normal Inspection Extremities: Normal Inspection, Normal Range of Motion Neurological: Alert, Oriented, CN II-XII Intact, Normal Cognition, Normal Gait, No Motor/Sensory Deficits Psychiatric: Normal Affect, Normal Mood Skin Exam: Warm, Dry, Intact, Normal Color, No Rash Lymphatic: No Adenopathy Course - Vital Signs Text/Narrative:: 27 y.o.w.f -smoker-came to the ed due to pain at her right lower abd. which she had before. She has her monthly period. Pt was diagnosed with an ovarian cyst by US in the past. It is the same as she has with any menstrual period. No N/V/ D or any other acute medical issues. BP 117/71 pulse 74 RR 18 Temp 36.6 O2 sat 98% on RA. PE: R L Q abd, pain with menstrual period, heavy smoker, poor dentition Impression: H/O ovarian cyst, Menstrual pain Tx: Toradol Reexam: Improved. Plan: D/C with instructions Last Recorded V/S: Last Vital Signs Temp 36.4 C 12/28/17 00:25 Pulse 71 12/28/17 00:25 Resp 16 12/28/17 00:25 BP 117/71 12/28/17 00:25 Pulse Ox 100 12/28/17 00:25 - Orders/Labs/Meds Meds: Medications Discontinued Medications Generic Name Dose Route Start Last Admin Trade Name Freq PRN Reason Stop Dose Admin Ketorolac Tromethamine 60 mg 12/28/17 00:42 12/28/17 00:50 Toradol IM 12/28/17 00:43 60 mg ONETIME ONE Administration Departure - Departure Time of Disposition: 01:18 Disposition: Home, Self-Care 01 Condition: Good Clinical Impression: Ovarian cyst Qualifiers: Laterality: right Qualified Code(s): N83.201 - Unspecified ovarian cyst, right side - Discharge Information Instructions: Abdominal Pain, Adult, [id number], Ovarian Cyst, [id number] Referrals: PCP,None [Primary Care Provider] - Forms: ED Department Discharge Additional Instructions: Please take motrin for pain, please f/u with your PMG, Please came back if your symptoms get worse acutely.
== END 2017-12-28 01:35 | disposition home or self-care (01) ==
LOC: FB.ED 00:20
DX: N83.201 Unspecified ovarian cyst, right side (principal); F17.210 Nicotine dependence, cigarettes, uncomplicated; Z88.0 Allergy status to penicillin; Z88.1 Allergy status to other antibiotic agents; Z88.8 Allergy status to other drugs, medicaments and biological substances; Z91.013 Allergy to seafood; Z88.7 Allergy status to serum and vaccine; Z91.018 Allergy to other foods
CPT/HCPCS: 96372; 99283; J1885; 99282

== ENCOUNTER 2018-01-17 19:44 | Emergency (ER) | payer MEDICAID, OTHER ==
[2018-01-17 20:11] VITALS: BP 122/80
--- NOTE | 2018-01-17 21:16 | EDM.PDOC ---
ED HPI GENERAL MEDICAL PROBLEM - General Chief Complaint: Genitourinary Problem Stated Complaint: RT BACK PAIN POSS KIDNEY INFECTION Time Seen by Provider: 01/17/18 20:06 Source of Information: Reports: Patient History Limitations: Reports: No Limitations - History of Present Illness INITIAL COMMENTS - FREE TEXT/NARRATIVE: 27 y.o.w.f came to the ed with r flank/back pain while at work today. No trauma no other acute medical issue at this time. BP 122/87 temp 36.8 RR 18 Pulse oc 100% Onset: Today Onset Date: 01/17/18 Onset Time: 19:00 Duration: Hour(s):, Intermittent Location: Reports: Back, Other (right flank) Quality: Reports: Ache Severity: Mild Improves with: Reports: Rest Worsens with: Reports: Movement Associated Symptoms: Reports: No Other Symptoms Lower Bladder Pain Score (Numeric/FACES): 8 - Related Data Allergies Allergy/AdvReac Type Severity Reaction Status Date / Time amoxicillin Allergy Cannot Verified 01/17/18 20:04 Remember azithromycin Allergy Cannot Verified 01/17/18 20:04 [From Zithromax Z-Mehul] Remember cefuroxime axetil Allergy Cannot Verified 01/17/18 20:04 [From Ceftin] Remember ciprofloxacin [From Cipro] Allergy Cannot Verified 01/17/18 20:04 Remember ciprofloxacin HCl Allergy Cannot Verified 01/17/18 20:04 [From Cipro] Remember [place] And Derivatives Allergy Anaphylactic Verified 01/17/18 20:04 Shock dicloxacillin Allergy Cannot Verified 01/17/18 20:04 Remember fluticasone propionate Allergy Cannot Verified 01/17/18 20:04 [From Advair Diskus] Remember guaifenesin Allergy Cannot Verified 01/17/18 20:04 Remember naproxen Allergy Cannot Verified 01/17/18 20:04 Remember omeprazole [From Prilosec] Allergy Cannot Verified 12/28/17 00:43 Remember omeprazole magnesium Allergy Cannot Verified 12/28/17 00:43 [From Prilosec] Remember Penicillins Allergy Cannot Verified 12/28/17 00:43 Remember salmeterol xinafoate Allergy Cannot Verified 12/28/17 00:43 [From Advair Diskus] Remember shellfish derived Allergy Anaphylactic Verified 12/28/17 00:43 Shock Sulfa (Sulfonamide Allergy Cannot Verified 12/28/17 00:43 Antibiotics) Remember venom-honey bee Allergy Anaphylactic Verified 12/28/17 00:43 [bee venom (honey bee)] Shock FLU VACCINE Allergy Cannot Uncoded 01/17/18 20:05 Remember TACO SEASONING Allergy Cannot Uncoded 01/17/18 20:05 Remember Home Meds: Home Meds Clindamycin HCl 300 mg PO BID #20 capsule 01/17/18 [Rx] Past Medical History HEENT History: Reports: 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) Other HEENT History: multi caries broken black teeth front upper 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: Reports: Asthma 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: , 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) Other OB/BYN History: ovarion cyst Musculoskeletal History: Reports: 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) Other Musculoskeletal History: hx of ankle, hand fractures; knee and foot dislocation Endocrine/Metabolic History: Reports: 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) Other Endocrine/Metabolic History: states that she is always having hypoglycemia - Infectious Disease History Infectious Disease History: Reports: Chicken Pox, Measles, Mumps - Past Surgical History HEENT Surgical History: Reports: Tonsillectomy GI Surgical History: Reports: Cholecystectomy Neurological Surgical History: Reports: 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) Other Neurological Surgeries/Procedures: states she had fluid drained from her brain one time Social & Family History - Family History Family Medical History: Noncontributory - Tobacco Use Smoking Status *Q: Current Every Day Smoker Years of Tobacco use: 20 Packs/Tins Daily: 0.5 Used Tobacco, but Quit: No Second Hand Smoke Exposure: Yes - Caffeine Use Caffeine Use: Reports: Soda - Recreational Drug Use Recreational Drug Use: No Drug Use in Last 12 Months: No Recreational Drug Type: Reports: Cocaine, LSD (Acid) ED ROS GENERAL - Review of Systems Review Of Systems: See Below Constitutional: Reports: No Symptoms HEENT: Reports: No Symptoms Respiratory: Reports: No Symptoms Cardiovascular: Reports: No Symptoms Endocrine: Reports: No Symptoms GI/Abdominal: Reports: No Symptoms : Reports: No Symptoms Musculoskeletal: Reports: Back Pain Skin: Reports: No Symptoms Neurological: Reports: No Symptoms Psychiatric: Reports: No Symptoms Hematologic/Lymphatic: Reports: No Symptoms Immunologic: Reports: No Symptoms ED EXAM, RENAL/ - Physical Exam Exam: See Below Exam Limited By: No Limitations General Appearance: Alert, WD/WN, No Apparent Distress Eye Exam: Bilateral Eye: Normal Inspection Ears: Normal External Exam, Normal Canal Nose: Normal Inspection, Normal Mucosa Throat/Mouth: Normal Inspection, Normal Lips, No Airway Compromise, Other (poor dentition) Head: Atraumatic, Normocephalic Neck: Normal Inspection, Supple, Non-Tender Respiratory/Chest: No Respiratory Distress, Lungs Clear, Normal Breath Sounds Cardiovascular: Normal Peripheral Pulses, Regular Rate, Rhythm GI/Abdominal: Normal Bowel Sounds, Soft, Non-Tender, Tender (tender r flank/ lower back) (Female) Exam: Deferred Rectal (Female) Exam: Deferred Back Exam: Normal Inspection, Full Range of Motion Extremities: Normal Inspection, Normal Range of Motion, Non-Tender, No Pedal Edema Neurological: Alert, Oriented, CN II-XII Intact, Normal Cognition, Normal Gait, No Motor/Sensory Deficits Psychiatric: Normal Affect, Normal Mood Skin Exam: Warm, Dry, Intact, Normal Color, No Rash Lymphatic: No Adenopathy Course - Vital Signs Text/Narrative:: 27 y.o.w.f came to the ed with r flank/back pain while at work today. No trauma no other acute medical issue at this time. BP 122/87 temp 36.8 RR 18 Pulse oc 100% PE: WNWD W F with poor dentition and r back discomfort Labs: UA neg Impression: Gingivitis, Back pain Tx: ABx as presc. Tylenol Reexam: Improved Plan: D/.C with instructions Last Recorded V/S: Last Vital Signs Temp 36.6 C 01/17/18 20:06 Pulse 75 01/17/18 20:06 Resp 14 01/17/18 20:06 BP 122/80 01/17/18 20:06 Pulse Ox 100 01/17/18 20:06 - Orders/Labs/Meds Labs: Laboratory Tests 01/17/18 Range/Units 20:39 Urine Color Yellow (YELLOW) Urine Appearance Clear (CLEAR) Urine pH 6.0 (5.0-6.5) Ur Specific [place] 1.020 (1.010-1.025) Urine Protein Negative (NEGATIVE) mg/dL Urine Glucose (UA) Normal (NEGATIVE) mg/dL Urine Ketones Negative (NEGATIVE) mg/dL Urine Occult Blood Negative (NEGATIVE) Urine Nitrite Negative (NEGATIVE) Urine Bilirubin Negative (NEGATIVE) Urine Urobilinogen Normal (NEGATIVE) mg/dL Ur Leukocyte Esterase Negative (NEGATIVE) Urine RBC 0-5 (0) Urine WBC 0-5 (0) Ur Squamous Epith Cells Moderate H (NS,R,O) Urine Bacteria Moderate H (NS) Departure - Departure Time of Disposition: 21:16 Disposition: Home, Self-Care 01 Condition: Good Clinical Impression: Gingivitis Back pain Qualifiers: Back pain location: low back pain Chronicity: unspecified Back pain laterality : right Sciatica presence: without sciatica Qualified Code(s): M54.5 - Low back pain - Discharge Information Prescriptions: Clindamycin HCl 300 mg PO BID #20 capsule Referrals: PCP,None [Primary Care Provider] - Forms: ED Department Discharge Additional Instructions: Please apply ice to the affected area, please take tylenol for pain, f/u, come back if worse acutely.
== END 2018-01-17 21:21 | disposition home or self-care (01) ==
LOC: FB.ED 19:44
DX: M54.5 Low back pain (principal); K05.10 Chronic gingivitis, plaque induced; Z88.2 Allergy status to sulfonamides; Z88.1 Allergy status to other antibiotic agents; Z88.7 Allergy status to serum and vaccine; Z88.8 Allergy status to other drugs, medicaments and biological substances; Z91.030 Bee allergy status
CPT/HCPCS: 81001; 99283

== ENCOUNTER 2018-03-16 12:18 | Emergency (ER) | payer OTHER ==
--- NOTE | 2018-03-16 12:59 | EDM.PDOC ---
ED HPI GENERAL MEDICAL PROBLEM - General Chief Complaint: ENT Problem Stated Complaint: EAR INFECTION Time Seen by Provider: 03/16/18 12:35 Source of Information: Reports: Patient History Limitations: Reports: No Limitations - History of Present Illness INITIAL COMMENTS - FREE TEXT/NARRATIVE: c/o R ear pain pt with sharp R ear pain driving to work at 8 AM, sharp, shearing, piercing pt pulled over by the side of the road, took 800 mg ibuprofen went to work at [employer], but left early (due off at 4p) and comes to ED had a bloody nose this AM before work altho nasal exam wnl now h/o tympanostomy tubes age 2, no ear problems as adult has had chronic teeth problems, cannot afford to have them pulled, had an abscess per pt at R maxilla and given antbx in clinic, finished antbx 2w ago still with some mild soreness at R dental ridge which pt says has been present for years no f/c/d right ear Pain Score (Numeric/FACES): 8 - Related Data Allergies Allergy/AdvReac Type Severity Reaction Status Date / Time amoxicillin Allergy Cannot Verified 03/16/18 12:25 Remember azithromycin Allergy Cannot Verified 03/16/18 12:25 [From Zithromax Z-Mehul] Remember cefuroxime axetil Allergy Cannot Verified 03/16/18 12:25 [From Ceftin] Remember ciprofloxacin [From Cipro] Allergy Cannot Verified 03/16/18 12:25 Remember ciprofloxacin HCl Allergy Cannot Verified 03/16/18 12:25 [From Cipro] Remember [place] And Derivatives Allergy Anaphylactic Verified 03/16/18 12:25 Shock dicloxacillin Allergy Cannot Verified 03/16/18 12:25 Remember fluticasone propionate Allergy Cannot Verified 03/16/18 12:25 [From Advair Diskus] Remember guaifenesin Allergy Cannot Verified 03/16/18 12:25 Remember naproxen Allergy Cannot Verified 03/16/18 12:25 Remember omeprazole [From Prilosec] Allergy Cannot Verified 03/16/18 12:25 Remember omeprazole magnesium Allergy Cannot Verified 03/16/18 12:25 [From Prilosec] Remember Penicillins Allergy Cannot Verified 03/16/18 12:25 Remember salmeterol xinafoate Allergy Cannot Verified 03/16/18 12:25 [From Advair Diskus] Remember shellfish derived Allergy Anaphylactic Verified 03/16/18 12:25 Shock Sulfa (Sulfonamide Allergy Cannot Verified 03/16/18 12:25 Antibiotics) Remember venom-honey bee Allergy Anaphylactic Verified 03/16/18 12:25 [bee venom (honey bee)] Shock FLU VACCINE Allergy Cannot Uncoded 01/17/18 20:05 Remember TACO SEASONING Allergy Cannot Uncoded 01/17/18 20:05 Remember Home Meds: Home Meds NK [No Known Home Meds] 03/16/18 [History] Past Medical History HEENT History: Reports: 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) Other HEENT History: multi caries broken black teeth front upper 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: Reports: Asthma 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: , 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) Other OB/BYN History: ovarion cyst Musculoskeletal History: Reports: 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) Other Musculoskeletal History: hx of ankle, hand fractures; knee and foot dislocation Endocrine/Metabolic History: Reports: 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) Other Endocrine/Metabolic History: states that she is always having hypoglycemia - Infectious Disease History Infectious Disease History: Reports: Chicken Pox, Measles, Mumps - Past Surgical History HEENT Surgical History: Reports: Tonsillectomy GI Surgical History: Reports: Cholecystectomy Neurological Surgical History: Reports: 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) Other Neurological Surgeries/Procedures: states she had fluid drained from her brain one time Social & Family History - Family History Family Medical History: Noncontributory - Tobacco Use Smoking Status *Q: Current Every Day Smoker Years of Tobacco use: 20 Packs/Tins Daily: 1 - Caffeine Use Caffeine Use: Reports: Energy Drinks - Recreational Drug Use Recreational Drug Use: No ED ROS ENT - Review of Systems Review Of Systems: See Below Constitutional: Reports: No Symptoms HEENT: Reports: Ear Pain. Denies: Ear Discharge Respiratory: Reports: No Symptoms Endocrine: Reports: No Symptoms GI/Abdominal: Reports: No Symptoms : Reports: No Symptoms Musculoskeletal: Reports: No Symptoms Skin: Reports: No Symptoms Neurological: Reports: No Symptoms Psychiatric: Reports: No Symptoms Hematologic/Lymphatic: Reports: No Symptoms Immunologic: Reports: No Symptoms ED EXAM, ENT - Physical Exam Exam: See Below Exam Limited By: No Limitations General Appearance: Alert, WD/WN, No Apparent Distress Ears: Other (R TM pale and wnl, R canal with 20% swell and slight red and 1+ tender on tug pinna and tragus, no wax, no d/c, L TM wnl) Nose: Normal Inspection, Normal Mucousa, No Blood, Other (no RBC seen) Mouth/Throat: Other (o-p neg, very poor dentition, deeply eroded teeth with multiple filings, slight tender above tooth ) Head: Atraumatic, Normocephalic Neck: Normal Inspection, Supple, Non-Tender, Full Range of Motion. No: Lymphadenopathy (R), Lymphadenopathy (L) Respiratory/Chest: No Respiratory Distress, Lungs Clear, Normal Breath Sounds, No Accessory Muscle Use, Chest Non-Tender Cardiovascular: Regular Rate, Rhythm, No Edema, No Gallop, No Murmur Psychiatric: Normal Affect Skin: Warm, Dry, Intact, Normal Color, No Rash Lymphatic: No Adenopathy Course - Vital Signs Last Recorded V/S: Last Vital Signs Temp 36.9 C 03/16/18 12:18 Pulse 76 03/16/18 12:18 Resp 20 03/16/18 12:18 BP 135/82 03/16/18 12:18 Pulse Ox 100 03/16/18 12:18 - Orders/Labs/Meds Orders: Active Orders 24 hr Category Date Time Status Hydrocort/Neomycin/Polymyxin B [Cortisporin Otic Susp] Med 03/16/18 17:00 Ordered 0.15 ml EARRT QID - Re-Assessments/Exams Free Text/Narrative Re-Assessment/Exam: 03/16/18 13:04 her chronic teeth problems appear unrelated to her R OE, has multiple issues with oral antbx, will use Cortisporin Otic drops Departure - Departure Time of Disposition: 13:05 Disposition: Home, Self-Care 01 Condition: Good Clinical Impression: Otitis externa Qualifiers: Chronicity: acute Laterality: right - Discharge Information Instructions: Ear Drops, Adult, Otitis Externa Referrals: PCP,None [Primary Care Provider] - Forms: ED Department Discharge, ED Return to Work/School Form Additional Instructions: For infection, put 3 antibiotic drops in ear canal 4 times a day for 5-7 days. For pain and inflammation and swelling, take ibuprofen 200 mg 3 tabs and acetaminophen 500 mg 2 tabs 4 times a day for today and tomorrow, longer if needed. See your doctor in one week as needed, earlier if you are feeling worse. - My Orders Last 24 Hours: My Active Orders 03/16/18 17:00 Hydrocort/Neomycin/Polymyxin B [Cortisporin Otic Susp] 0.15 ml EARRT QID - Assessment/Plan Last 24 Hours: My Active Orders 03/16/18 17:00 Hydrocort/Neomycin/Polymyxin B [Cortisporin Otic Susp] 0.15 ml EARRT QID
[2018-03-16 13:54] VITALS: BP 123/68
[2018-03-16] MEDS ORDERED: Hydrocortisone/Neomycin/Polymyxin B Otic Susp 10 ML Bottle EARRT SCH (17:00)
== END 2018-03-16 13:40 | disposition home or self-care (01) ==
LOC: FB.ED 12:18
DX: H60.501 Unspecified acute noninfective otitis externa, right ear (principal); J45.909 Unspecified asthma, uncomplicated; Z88.0 Allergy status to penicillin; Z88.1 Allergy status to other antibiotic agents; Z88.2 Allergy status to sulfonamides; Z91.030 Bee allergy status; Z88.7 Allergy status to serum and vaccine; Z91.018 Allergy to other foods; Z88.8 Allergy status to other drugs, medicaments and biological substances
CPT/HCPCS: 99282; A9270-GY

== ENCOUNTER 2018-06-14 21:51 | Emergency (ER) | payer OTHER ==
--- NOTE | 2018-06-14 22:10 | EDM.PDOC ---
ED HPI GENERAL MEDICAL PROBLEM - General Stated Complaint: RT FOOT PAIN Time Seen by Provider: 06/14/18 21:51 Source of Information: Reports: Patient, Family History Limitations: Reports: No Limitations - History of Present Illness INITIAL COMMENTS - FREE TEXT/NARRATIVE: 28 y.o.w.f with frequent visits to this ed, came with her friend to the ed after a piece of furniture fell onto her right foot. Pt stated, she can not apply weight to her right foot due to pain. There was no skin bruise, discoloration or any other skin lesion. No other acute medical issues. BP 147/ 78 Pulse 80 RR 18 Pulse ox 100% on RA temp 36.8 Onset Date: 06/14/18 Onset Time: 20:00 Duration: Hour(s):, Intermittent Location: Reports: Lower Extremity, Right (foot/ankle) Quality: Reports: Ache, Dull, Pressure Severity: Moderate Improves with: Reports: Rest Worsens with: Reports: Movement Context: Reports: Trauma (furniture fell on right foot/ankle) Associated Symptoms: Reports: No Other Symptoms Left Feet Pain Score (Numeric/FACES): 10 - Related Data Allergies Allergy/AdvReac Type Severity Reaction Status Date / Time amoxicillin Allergy Cannot Verified 03/16/18 12:25 Remember azithromycin Allergy Cannot Verified 03/16/18 12:25 [From Zithromax Z-Mehul] Remember cefuroxime axetil Allergy Cannot Verified 03/16/18 12:25 [From Ceftin] Remember ciprofloxacin [From Cipro] Allergy Cannot Verified 03/16/18 12:25 Remember ciprofloxacin HCl Allergy Cannot Verified 03/16/18 12:25 [From Cipro] Remember [place] And Derivatives Allergy Anaphylactic Verified 03/16/18 12:25 Shock dicloxacillin Allergy Cannot Verified 03/16/18 12:25 Remember fluticasone propionate Allergy Cannot Verified 03/16/18 12:25 [From Advair Diskus] Remember guaifenesin Allergy Cannot Verified 03/16/18 12:25 Remember naproxen Allergy Cannot Verified 03/16/18 12:25 Remember omeprazole [From Prilosec] Allergy Cannot Verified 03/16/18 12:25 Remember omeprazole magnesium Allergy Cannot Verified 03/16/18 12:25 [From Prilosec] Remember Penicillins Allergy Cannot Verified 03/16/18 12:25 Remember salmeterol xinafoate Allergy Cannot Verified 03/16/18 12:25 [From Advair Diskus] Remember shellfish derived Allergy Anaphylactic Verified 03/16/18 12:25 Shock Sulfa (Sulfonamide Allergy Cannot Verified 03/16/18 12:25 Antibiotics) Remember venom-honey bee Allergy Anaphylactic Verified 03/16/18 12:25 [bee venom (honey bee)] Shock FLU VACCINE Allergy Cannot Uncoded 01/17/18 20:05 Remember TACO SEASONING Allergy Cannot Uncoded 01/17/18 20:05 Remember Home Meds: Home Meds Hydrocort/Neomycin/Polymyxin B [Cortisporin Otic Soln] 10 ml .XX QID #10 bottle 03/16/18 [Rx] Past Medical History HEENT History: Reports: 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) Other HEENT History: multi caries broken black teeth front upper 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: Reports: Asthma 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: , 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) Other GLAZE WIPER History: ovarion cyst Musculoskeletal History: Reports: 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) Other Musculoskeletal History: hx of ankle, hand fractures; knee and foot dislocation Endocrine/Metabolic History: Reports: 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) Other Endocrine/Metabolic History: states that she is always having hypoglycemia - Infectious Disease History Infectious Disease History: Reports: Chicken Pox, Measles, Mumps - Past Surgical History HEENT Surgical History: Reports: Tonsillectomy GI Surgical History: Reports: Cholecystectomy Neurological Surgical History: Reports: 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) Other Neurological Surgeries/Procedures: states she had fluid drained from her brain one time Social & Family History - Family History Family Medical History: Noncontributory - Caffeine Use Caffeine Use: Reports: Energy Drinks Review of Systems - Review of Systems Review Of Systems: See Below Constitutional: Reports: No Symptoms Eyes: Reports: No Symptoms Ears: Reports: No Symptoms Nose: Reports: No Symptoms Mouth/Throat: Reports: No Symptoms Respiratory: Reports: No Symptoms Cardiovascular: Reports: No Symptoms GI/Abdominal: Reports: No Symptoms Genitourinary: Reports: No Symptoms Musculoskeletal: Reports: Foot Pain Skin: Reports: No Symptoms Neurological: Reports: No Symptoms Psychiatric: Reports: No Symptoms ED EXAM, GENERAL - Physical Exam Exam: See Below Exam Limited By: No Limitations General Appearance: Alert, WD/WN, Mild Distress Eye Exam: Bilateral Eye: Normal Inspection Ears: Normal External Exam Ear Exam: Bilateral Ear: Auricle Normal Nose: Normal Inspection Throat/Mouth: Normal Inspection, Normal Lips, Normal Voice, No Airway Compromise Head: Atraumatic, Normocephalic Neck: Normal Inspection, Supple, Non-Tender, Full Range of Motion Respiratory/Chest: No Respiratory Distress, Lungs Clear, Normal Breath Sounds, No Accessory Muscle Use, Chest Non-Tender Cardiovascular: Normal Peripheral Pulses, Regular Rate, Rhythm, No Edema, No Gallop, No JVD, No Murmur, No Rub Peripheral Pulses: 1+: Brachial (L) GI/Abdominal: Normal Bowel Sounds, Soft, Non-Tender, No Organomegaly, No Abnormal Bruit, No Mass, Pelvis Stable (Female) Exam: Deferred Rectal (Female) Exam: Deferred Back Exam: Normal Inspection, Full Range of Motion Extremities: Normal Inspection, Limited Range of Motion (right ankle/foot) Neurological: Alert, Oriented, CN II-XII Intact, Normal Cognition, Abnormal Gait (right foot pain) Psychiatric: Normal Affect, Normal Mood Skin Exam: Warm, Dry, Intact, Normal Color, No Rash Lymphatic: No Adenopathy Course - Vital Signs Text/Narrative:: 28 y.o.w.f with frequent visits to this ed, came with her friend to the ed after a piece of furniture fell onto her right foot. Pt stated, she can not apply weight to her right foot due to pain. There was no skin bruise, discoloration or any other skin lesion. No other acute medical issues. BP 147/ 78 Pulse 80 RR 18 Pulse ox 100% on RA temp 36.8 PE: WNWD W F c/o right foot pain. Nl appearance or right foot, complains of pain with movement. Imaging: right foot/ankle sprain:NAD Impression: right foot/ankle sprain Tx: Toradol, ICE, pt refused crutches Reexam: Improved, some(??). Pt was limping in the ed when she wa d/c'd. However , as she left the building going to the ED parking lot, her gate was entire nl. No limbing at all, seen through hospital's the video cameras Plan: D/C with instructions Last Recorded V/S: Last Vital Signs Temp 36.8 C 06/14/18 22:00 Pulse 80 06/14/18 22:00 Resp 16 06/14/18 22:00 BP 140/78 06/14/18 22:00 Pulse Ox 100 06/14/18 22:00 - Orders/Labs/Meds Orders: Active Orders 24 hr Category Date Time Status Aureliano Bandage [RC] ONETIME Care 06/14/18 22:40 Active Cooling Warming Measures [RC] ASDIRECTED Care 06/14/18 22:37 Active Ankle Min 3V Rt [CR] Stat Exams 06/14/18 22:08 Taken Foot Comp Min 3V Rt [CR] Stat Exams 06/14/18 22:08 Taken Ice Bag [Ice Therapy] [OM.PC] Routine Oth 06/14/18 22:37 Ordered Meds: Medications Discontinued Medications Generic Name Dose Route Start Last Admin Trade Name Freq PRN Reason Stop Dose Admin Ketorolac Tromethamine 60 mg 06/14/18 22:37 06/14/18 22:47 Toradol IM 06/14/18 22:38 60 mg ONETIME ONE Administration Departure - Departure Time of Disposition: 22:38 Disposition: Home, Self-Care 01 Condition: Good Clinical Impression: Sprain of foot, right Qualifiers: Encounter type: initial encounter Qualified Code(s): S93.601A - Unspecified sprain of right foot, initial encounter - Discharge Information Instructions: Ankle Sprain, Ankle Sprain, [id number] Referrals: Tessa Barcenas PA-C [Primary Care Provider] - Forms: ED Department Discharge Additional Instructions: Ice, rest and elevation, apply weight to right foot as tolerated, please f/u, come back if your symptoms are getting worse acutely. - My Orders Last 24 Hours: My Active Orders 06/14/18 22:08 Ankle Min 3V Rt [CR] Stat Foot Comp Min 3V Rt [CR] Stat 06/14/18 22:37 Cooling Warming Measures [RC] ASDIRECTED Ice Bag [Ice Therapy] [OM.PC] Routine 06/14/18 22:40 Aureliano Bandage [RC] ONETIME - Assessment/Plan Last 24 Hours: My Active Orders 06/14/18 22:08 Ankle Min 3V Rt [CR] Stat Foot Comp Min 3V Rt [CR] Stat 06/14/18 22:37 Cooling Warming Measures [RC] ASDIRECTED Ice Bag [Ice Therapy] [OM.PC] Routine 06/14/18 22:40 Aureliano Bandage [RC] ONETIME
[2018-06-14] MEDS ORDERED: Ketorolac 60 MG/2 ML SDV IM ONE (22:37)
[2018-06-15 00:51] VITALS: BP 140/78
--- NOTE | 2018-06-16 12:17 | CR ---
INDICATION: Trauma. RIGHT ANKLE: Three views of the right ankle revealed the ankle mortise to appear intact without evidence of a fracture, dislocation, or other significant bone or joint abnormality. ALIN
--- NOTE | 2018-06-16 12:18 | CR ---
INDICATION: Trauma. RIGHT FOOT: Three views of the right foot were obtained, 06/14/2018 - no comparisons. A fracture, dislocation, or other significant bone or joint abnormality was not identified. [facility]
== END 2018-06-14 23:03 | disposition home or self-care (01) ==
LOC: FB.ED 21:51
DX: S93.601A Unspecified sprain of right foot, initial encounter (principal); Z88.0 Allergy status to penicillin; Z88.1 Allergy status to other antibiotic agents; Z88.2 Allergy status to sulfonamides; Z91.013 Allergy to seafood; Z91.030 Bee allergy status; Z88.7 Allergy status to serum and vaccine; W20.8XXA Other cause of strike by thrown, projected or falling object, initial encounter
CPT/HCPCS: 73610; 73630; 96372; 99283; J1885

== ENCOUNTER 2018-11-24 16:32 | Emergency (ER) | payer OTHER ==
[2018-11-24] MEDS ORDERED: Ketorolac 60 MG/2 ML SDV IM ONE (16:48)
--- NOTE | 2018-11-24 17:45 | EDM.PDOC ---
ED HPI GENERAL MEDICAL PROBLEM - General Stated Complaint: BURST CYST Time Seen by Provider: 11/24/18 16:32 Source of Information: Reports: Patient, Family History Limitations: Reports: No Limitations - History of Present Illness INITIAL COMMENTS - FREE TEXT/NARRATIVE: 28 y.o.w.f with multiple visits to this ED came to the ed due to RLQ abd, pain, no dysuria, pt has her period, no trauma. Pt has her menstrual period. No N/V/D. Pt stated she wants a sick leave after everything is done. No N/V/D or any other acute med issues. Pt stated she has a female partner. BP 113/58 RR 18 Pulse ox 98% on RA Temp 36.9 Pulse 81 Onset Date: 11/24/18 Onset Time: 07:00 Duration: Hour(s):, Getting Worse, Intermittent Location: Reports: Pelvis (RLQ of abdomen) Quality: Reports: Burning, Dull Severity: Moderate Improves with: Reports: Rest Worsens with: Reports: Movement Context: Reports: Other right side abdomen/flank Pain Score (Numeric/FACES): 9 - Related Data Allergies Allergy/AdvReac Type Severity Reaction Status Date / Time amoxicillin Allergy Cannot Verified 11/24/18 18:05 Remember azithromycin Allergy Cannot Verified 11/24/18 18:05 [From Zithromax Z-Mehul] Remember cefuroxime axetil Allergy Cannot Verified 11/24/18 18:05 [From Ceftin] Remember ciprofloxacin [From Cipro] Allergy Cannot Verified 11/24/18 18:05 Remember ciprofloxacin HCl Allergy Cannot Verified 11/24/18 18:05 [From Cipro] Remember [place] And Derivatives Allergy Anaphylactic Verified 11/24/18 18:05 Shock dicloxacillin Allergy Cannot Verified 11/24/18 18:05 Remember diphenhydramine Allergy Hives Verified 11/24/18 18:05 [From Benadryl] fluticasone propionate Allergy Cannot Verified 11/24/18 18:05 [From Advair Diskus] Remember guaifenesin Allergy Cannot Verified 11/24/18 18:05 Remember naproxen Allergy Cannot Verified 11/24/18 18:05 Remember omeprazole [From Prilosec] Allergy Cannot Verified 11/24/18 18:05 Remember omeprazole magnesium Allergy Cannot Verified 11/24/18 18:05 [From Prilosec] Remember Penicillins Allergy Cannot Verified 11/24/18 18:05 Remember salmeterol xinafoate Allergy Cannot Verified 11/24/18 18:05 [From Advair Diskus] Remember shellfish derived Allergy Anaphylactic Verified 11/24/18 18:05 Shock Sulfa (Sulfonamide Allergy Cannot Verified 11/24/18 18:05 Antibiotics) Remember venom-honey bee Allergy Anaphylactic Verified 11/24/18 18:05 [bee venom (honey bee)] Shock FLU VACCINE Allergy Cannot Uncoded 11/24/18 18:05 Remember TACO SEASONING Allergy Cannot Uncoded 11/24/18 18:05 Remember Home Meds: Home Meds Albuterol Sulfate [Proair Hfa] 11/24/18 [History] Nitrofurantoin 100 gm MC BID #20 powder 11/24/18 [Rx] Past Medical History HEENT History: Reports: 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) Other HEENT History: multi caries broken black teeth front upper 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: Reports: Asthma 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 Endocrine/Metabolic History: Reports: Obesity/BMI 30+, 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) Other Endocrine/Metabolic History: states that she is always having hypoglycemia - Infectious Disease History Infectious Disease History: Reports: Chicken Pox, Measles, MRSA, Mumps - Past Surgical History HEENT Surgical History: Reports: Adenoidectomy, Myringotomy w Tube(s), Oral Surgery, Tonsillectomy Other HEENT Surgeries/Procedures: tubes in bilat eyes GI Surgical History: Reports: Cholecystectomy Endocrine Surgical History: Reports: None Neurological Surgical History: Reports: 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) Other Neurological Surgeries/Procedures: states 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 Musculoskeletal Surgical History: Reports: None Social & Family History - Family History Family Medical History: Noncontributory - Caffeine Use Caffeine Use: Reports: Energy Drinks, Soda ED ROS GENERAL - Review of Systems Review Of Systems: See Below Constitutional: Reports: No Symptoms HEENT: Reports: No Symptoms Respiratory: Reports: No Symptoms Cardiovascular: Reports: No Symptoms Endocrine: Reports: No Symptoms GI/Abdominal: Reports: Other (RLQ abd pain) : Reports: Dysuria Musculoskeletal: Reports: No Symptoms Skin: Reports: No Symptoms Neurological: Reports: No Symptoms Psychiatric: Reports: No Symptoms Hematologic/Lymphatic: Reports: No Symptoms Immunologic: Reports: No Symptoms ED EXAM, GI/ABD - Physical Exam Exam: See Below Exam Limited By: No Limitations General Appearance: Alert, WD/WN, Mild Distress Eyes: Bilateral: Normal Appearance Ears: Normal External Exam Nose: Normal Inspection Throat/Mouth: Normal Lips, Normal Voice, No Airway Compromise, Other (poor dentition) Head: Atraumatic, Normocephalic Neck: Normal Inspection, Supple, Non-Tender Respiratory/Chest: No Respiratory Distress, Lungs Clear Cardiovascular: Normal Peripheral Pulses, Regular Rate, Rhythm GI/Abdominal Exam: Normal Bowel Sounds, Soft, No Organomegaly, Pelvis Stable, Tender (RLQ abd. pain) (Female) Exam: Deferred Rectal (Female) Exam: Deferred Back Exam: Normal Inspection, Full Range of Motion Extremities: Normal Inspection, Normal Range of Motion, Non-Tender, No Pedal Edema Neurological: Alert, Oriented, CN II-XII Intact, Normal Cognition, Normal Gait, No Motor/Sensory Deficits Psychiatric: Normal Affect, Normal Mood Skin Exam: Warm, Dry, Intact, Normal Color, No Rash Lymphatic: No Adenopathy Course - Vital Signs Text/Narrative:: 28 y.o.w.f with multiple visits to this ED came to the ed due to RLQ abd, pain, no dysuria, pt has her period, no trauma. Pt has her menstrual period. No N/V/D. Pt stated she wants a sick leave after everything is done. No N/V/D or any other acute med issues. Pt stated she has a female partner. BP 113/58 RR 18 Pulse ox 98% on RA Temp 36.9 Pulse 81 PE: WNWD WF with RLQ abd. pain Imaging: U/S pelvis: No ovarian cyst RL abdomen, CT abd: Neg for APPY Labs: WBC 15.5 UPT neg UA: Pos for uti, pt has her menst period Impression: UTI, Menstrual pain Tx: Toradol, Nitrofurantoin Reexam: Improved Plan: D/C with instructions Last Recorded V/S: Last Vital Signs Temp 37.2 C 11/24/18 16:40 Pulse 68 11/24/18 19:30 Resp 16 11/24/18 19:30 BP 130/94 H 11/24/18 19:30 Pulse Ox 98 11/24/18 19:30 - Orders/Labs/Meds Orders: Active Orders 24 hr Category Date Time Status Abdomen Pelvis w Cont [CT] Stat Exams 11/24/18 16:49 Taken Pelvis Non OB Ltd [US] Routine Exams 11/24/18 17:51 Taken Transvaginal Non OB [US] Routine Exams 11/24/18 17:51 Taken Labs: Laboratory Tests 11/24/18 11/24/18 11/24/18 Range/Units 17:00 17:00 18:04 WBC 15.5 H (4.5-12.0) X10-3/uL RBC 4.75 (3.23-5.20) x10(6)uL Hgb 14.7 (11.5-15.5) g/dL Hct 41.8 (30.0-51.3) % MCV 88.1 (80-96) fL MCH 31.0 (27.7-33.6) pg MCHC 35.2 (32.2-35.4) g/dL RDW 12.9 (11.5-15.5) % Plt Count 291 (125-369) X10(3)uL MPV 9.2 (7.4-10.4) fL Neut % (Auto) 71.2 (46-82) % Lymph % (Auto) 18.7 (13-37) % [place] % (Auto) 7.7 (4-12) % Eos % (Auto) 2 (1.0-5.0) % Baso % (Auto) 1 (0-2) % Neut # (Auto) 11.0 H (1.6-8.3) # Lymph # (Auto) 2.9 (0.6-5.0) # [place] # (Auto) 1.2 (0.0-1.3) # Eos # (Auto) 0.3 (0.0-0.8) # Baso # (Auto) 0.1 (0.0-0.2) # Sodium 141 (135-145) mmol/L Potassium 3.2 L (3.5-5.3) mmol/L Chloride 106 (100-110) mmol/L Carbon Dioxide 27 (21-32) mmol/L BUN 9 (7-18) mg/dL Creatinine 0.8 (0.55-1.02) mg/dL Est Cr Clr Drug Dosing TNP Estimated GFR (MDRD) > 60 (>60) BUN/Creatinine Ratio 11.3 (9-20) Glucose 104 (80-116) mg/dL Calcium 8.8 (8.6-10.2) mg/dL Urine Color Red (YELLOW) Urine Appearance Cloudy (CLEAR) Urine pH 8.0 H (5.0-6.5) Ur Specific [place] 1.020 (1.010-1.025) Urine Protein 30 H (NEGATIVE) mg/dL Urine Glucose (UA) Normal (NEGATIVE) mg/dL Urine Ketones Negative (NEGATIVE) mg/dL Urine Occult Blood Large H (NEGATIVE) Urine Nitrite Negative (NEGATIVE) Urine Bilirubin Negative (NEGATIVE) Urine Urobilinogen 1 H (NEGATIVE) mg/dL Ur Leukocyte Esterase Large H (NEGATIVE) Urine RBC >100 H (0) Urine WBC 10-20 H (0) Ur Squamous Epith Cells Occasional (NS,R,O) Urine Bacteria Few H (NS) Urine HCG, Qual (NEGATIVE) 11/24/18 Range/Units 18:04 WBC (4.5-12.0) X10-3/uL RBC (3.23-5.20) x10(6)uL Hgb (11.5-15.5) g/dL Hct (30.0-51.3) % MCV (80-96) fL MCH (27.7-33.6) pg MCHC (32.2-35.4) g/dL RDW (11.5-15.5) % Plt Count (125-369) X10(3)uL MPV (7.4-10.4) fL Neut % (Auto) (46-82) % Lymph % (Auto) (13-37) % [place] % (Auto) (4-12) % Eos % (Auto) (1.0-5.0) % Baso % (Auto) (0-2) % Neut # (Auto) (1.6-8.3) # Lymph # (Auto) (0.6-5.0) # [place] # (Auto) (0.0-1.3) # Eos # (Auto) (0.0-0.8) # Baso # (Auto) (0.0-0.2) # Sodium (135-145) mmol/L Potassium (3.5-5.3) mmol/L Chloride (100-110) mmol/L Carbon Dioxide (21-32) mmol/L BUN (7-18) mg/dL Creatinine (0.55-1.02) mg/dL Est Cr Clr Drug Dosing Estimated GFR (MDRD) (>60) BUN/Creatinine Ratio (9-20) Glucose (80-116) mg/dL Calcium (8.6-10.2) mg/dL Urine Color (YELLOW) Urine Appearance (CLEAR) Urine pH (5.0-6.5) Ur Specific [place] (1.010-1.025) Urine Protein (NEGATIVE) mg/dL Urine Glucose (UA) (NEGATIVE) mg/dL Urine Ketones (NEGATIVE) mg/dL Urine Occult Blood (NEGATIVE) Urine Nitrite (NEGATIVE) Urine Bilirubin (NEGATIVE) Urine Urobilinogen (NEGATIVE) mg/dL Ur Leukocyte Esterase (NEGATIVE) Urine RBC (0) Urine WBC (0) Ur Squamous Epith Cells (NS,R,O) Urine Bacteria (NS) Urine HCG, Qual Negative (NEGATIVE) Meds: Medications Discontinued Medications Generic Name Dose Route Start Last Admin Trade Name Freq PRN Reason Stop Dose Admin Iopamidol 100 ml 11/24/18 18:01 11/24/18 18:23 Isovue-370 (76%) IV 11/24/18 18:02 100 ml . DIRECTED ONE Administration Ketorolac Tromethamine 60 mg 11/24/18 16:48 11/24/18 17:35 Toradol IM 11/24/18 16:49 60 mg ONETIME ONE Administration Nitrofurantoin Macrocrystals 50 mg 11/24/18 19:18 11/24/18 19:48 Macrodantin PO 11/24/18 19:19 Not Given BID STA Nitrofurantoin Macrocrystals Confirm 11/24/18 19:33 11/24/18 19:48 Macrobid Administered 11/24/18 19:34 Not Given Dose 100 mg .ROUTE .STK-MED ONE Nitrofurantoin Macrocrystals 100 mg 11/24/18 19:38 11/24/18 19:35 Macrodantin PO 11/24/18 19:39 100 mg ONETIME STA Administration Departure - Departure Time of Disposition: 19:21 Disposition: Home, Self-Care 01 Condition: Good Clinical Impression: UTI (urinary tract infection) - Discharge Information Prescriptions: Nitrofurantoin 100 gm MC BID #20 powder Instructions: Nitrofurantoin tablets or capsules, Urinary Tract Infection, Adult Referrals: Tessa Barcenas PA-C [Primary Care Provider] - Forms: ED Department Discharge, ED Return to Work/School Form Additional Instructions: Please increase water intake. Nitrofurantoin as recommended, please f/u, come back if your symptoms get worse acutely - My Orders Last 24 Hours: My Active Orders 11/24/18 16:49 Abdomen Pelvis w Cont [CT] Stat 11/24/18 17:51 Pelvis Non OB Ltd [US] Routine Transvaginal Non OB [US] Routine - Assessment/Plan Last 24 Hours: My Active Orders 11/24/18 16:49 Abdomen Pelvis w Cont [CT] Stat 11/24/18 17:51 Pelvis Non OB Ltd [US] Routine Transvaginal Non OB [US] Routine
[2018-11-24] MEDS ORDERED: Iopamidol 755 Mg/ML 100 ML Bottle IV ONE (18:01)
[2018-11-24] MEDS ORDERED: Nitrofurantoin Macrocrystal 50 MG Cap PO STA ×2 (19:18→19:38)
[2018-11-24] MEDS ORDERED: Nitrofurantoin Monohydrate/Macrocrystalline 100 MG Cap PO ONE (19:30)
[2018-11-24] MEDS ORDERED: Nitrofurantoin Monohydrate/Macrocrystalline 100 MG Cap ONE (19:33)
[2018-11-24 19:49] VITALS: BP 130/94
== END 2018-11-24 19:45 | disposition home or self-care (01) ==
LOC: FB.ED 16:32
DX: N39.0 Urinary tract infection, site not specified (principal); N94.6 Dysmenorrhea, unspecified; Z88.1 Allergy status to other antibiotic agents; Z88.2 Allergy status to sulfonamides; Z88.8 Allergy status to other drugs, medicaments and biological substances; Z91.013 Allergy to seafood; Z88.7 Allergy status to serum and vaccine; Z91.018 Allergy to other foods; Z88.0 Allergy status to penicillin; Z91.030 Bee allergy status
CPT/HCPCS: 36415; 74177; 76830; 76857; 80048; 81001; 81025; 85025; 96372; 99284; A9270-GY; J1885; Q9967

== ENCOUNTER 2019-08-12 16:32 | Emergency (ER) | payer OTHER ==
[2019-08-12 16:47] VITALS: BP 135/81; PULSE 77
--- NOTE | 2019-08-12 17:00 | EDM.PDOC ---
ED HPI GENERAL MEDICAL PROBLEM - General Chief Complaint: ENT Problem Stated Complaint: R SIDE MOUTH PAIN Time Seen by Provider: 08/12/19 16:54 Source of Information: Reports: Patient History Limitations: Reports: No Limitations - History of Present Illness INITIAL COMMENTS - FREE TEXT/NARRATIVE: Complains of right upper dental pain x 3 days. Has a h/o dental caries, always has a low level of pain, but pain has increased over the last 3 days. She has not taken any OTC pain medications. Denies fevers, facial swelling, or difficulty swallowing. 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: Denies: Acetaminophen, NSAIDS right side mouth Pain Score (Numeric/FACES): 8 - Related Data Allergies Allergy/AdvReac Type Severity Reaction Status Date / Time amoxicillin Allergy Cannot Verified 11/24/18 18:05 Remember azithromycin Allergy Cannot Verified 11/24/18 18:05 [From Zithromax Z-Mehul] Remember cefuroxime axetil Allergy Cannot Verified 11/24/18 18:05 [From Ceftin] Remember ciprofloxacin [From Cipro] Allergy Cannot Verified 11/24/18 18:05 Remember ciprofloxacin HCl Allergy Cannot Verified 11/24/18 18:05 [From Cipro] Remember [place] And Derivatives Allergy Anaphylactic Verified 11/24/18 18:05 Shock dicloxacillin Allergy Cannot Verified 11/24/18 18:05 Remember diphenhydramine Allergy Hives Verified 11/24/18 18:05 [From Benadryl] fluticasone propionate Allergy Cannot Verified 11/24/18 18:05 [From Advair Diskus] Remember guaifenesin Allergy Cannot Verified 11/24/18 18:05 Remember naproxen Allergy Cannot Verified 11/24/18 18:05 Remember omeprazole [From Prilosec] Allergy Cannot Verified 11/24/18 18:05 Remember omeprazole magnesium Allergy Cannot Verified 11/24/18 18:05 [From Prilosec] Remember Penicillins Allergy Cannot Verified 11/24/18 18:05 Remember salmeterol xinafoate Allergy Cannot Verified 11/24/18 18:05 [From Advair Diskus] Remember shellfish derived Allergy Anaphylactic Verified 11/24/18 18:05 Shock Sulfa (Sulfonamide Allergy Cannot Verified 11/24/18 18:05 Antibiotics) Remember venom-honey bee Allergy Anaphylactic Verified 11/24/18 18:05 [bee venom (honey bee)] Shock FLU VACCINE Allergy Cannot Uncoded 11/24/18 18:05 Remember TACO SEASONING Allergy Cannot Uncoded 11/24/18 18:05 Remember Home Meds: Home Meds Clindamycin HCl 300 mg PO QID #40 capsule 08/12/19 [Rx] Ibuprofen 600 mg PO Q6H PRN #20 tablet 08/12/19 [Rx] NK [No Known Home Meds] 08/12/19 [History] Past Medical History HEENT History: Reports: 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) Other HEENT History: multi caries broken black teeth front upper 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: Reports: Asthma CT SCAN TECHNICIAN History: Reports: , 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) Other CT SCAN TECHNICIAN History: ovarion cyst , A3 Musculoskeletal History: Reports: Arthritis, Fracture, 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) Other Musculoskeletal History: hx of R ankle, L hand fractures; R knee and foot dislocation, Neurological History: Reports: Brain Injury Psychiatric History: Reports: Addiction, Mood Swings, Psych Hospitalization(s), Suicide Attempt Other Psychiatric History: hx ETOH & drug abuse, 0 in past 10yrs. Endocrine/Metabolic History: Reports: Obesity/BMI 30+, 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) Other Endocrine/Metabolic History: states that she is always having hypoglycemia - Infectious Disease History Infectious Disease History: Reports: Chicken Pox, Measles, MRSA, Mumps - Past Surgical History HEENT Surgical History: Reports: Adenoidectomy, Myringotomy w Tube(s), Oral Surgery, Tonsillectomy Other HEENT Surgeries/Procedures: tubes in bilat eyes GI Surgical History: Reports: Cholecystectomy Endocrine Surgical History: Reports: None Neurological Surgical History: Reports: 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) Other Neurological Surgeries/Procedures: states 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 ED EXAM, ENT - Physical Exam Exam: See Below Exam Limited By: No Limitations General Appearance: Alert, WD/WN, No Apparent Distress Ears: Normal External Exam Nose: Normal Inspection Mouth/Throat: Normal Lips, Normal Oropharynx, Dental Tenderness (right upper), Other (Widespread dental caries). No: Gum Swelling Head: Atraumatic, Normocephalic Neck: Full Range of Motion Respiratory/Chest: No Respiratory Distress Back: Full Range of Motion Neurological: Alert, Normal Cognition Psychiatric: Normal Affect, Normal Mood Skin: Warm, Dry, Intact Course - Vital Signs Last Recorded V/S: Last Vital Signs Temp 36.9 C 08/12/19 16:32 Pulse 77 08/12/19 16:32 Resp 17 08/12/19 16:32 BP 135/81 08/12/19 16:32 Pulse Ox 96 08/12/19 16:32 Departure - Departure Time of Disposition: 16:58 Disposition: Home, Self-Care 01 Condition: Good Clinical Impression: Dental caries - Discharge Information *PRESCRIPTION DRUG MONITORING PROGRAM REVIEWED*: Yes *COPY OF PRESCRIPTION DRUG MONITORING REPORT IN PATIENT RUDY: Not Applicable Prescriptions: Clindamycin HCl 300 mg PO QID #40 capsule Ibuprofen 600 mg PO Q6H PRN #20 tablet PRN Reason: Pain Referrals: Tessa Barcenas PA-C [Primary Care Provider] - Additional Instructions: Fill prescriptions for Clindamycin and Ibuprofen and take as directed. You may also take Tylenol as needed. Follow up with a Dentist in 2-3 days.
== END 2019-08-12 17:04 | disposition home or self-care (01) ==
LOC: FB.ED 16:32
DX: K02.9 Dental caries, unspecified (principal); F17.210 Nicotine dependence, cigarettes, uncomplicated; Z88.1 Allergy status to other antibiotic agents; Z91.018 Allergy to other foods; Z88.8 Allergy status to other drugs, medicaments and biological substances; Z88.0 Allergy status to penicillin; Z88.2 Allergy status to sulfonamides; Z88.7 Allergy status to serum and vaccine; Z91.030 Bee allergy status; Z91.013 Allergy to seafood; Z91.09 Other allergy status, other than to drugs and biological substances
CPT/HCPCS: 99282

== ENCOUNTER 2019-11-14 13:30 | Emergency (ER) | payer OTHER ==
[2019-11-14] MEDS ORDERED: predniSONE 20 MG Tab PO ONE (13:31)
[2019-11-14] MEDS ORDERED: Sodium Chloride 0.9% 10 ML Syringe FLUSH PRN (13:54)
[2019-11-14] MEDS ORDERED: Dexamethasone 4 MG/ML SDV IVPUSH ONE (13:54)
[2019-11-14] MEDS ORDERED: Albuterol/Ipratropium 3.0-0.5 MG/3 ML Neb Soln NEB ONE (13:55)
--- NOTE | 2019-11-14 14:20 | EDM.PDOC ---
ED HPI GENERAL MEDICAL PROBLEM - General Chief Complaint: Asthma Stated Complaint: HARD TIME BREATHING Time Seen by Provider: 11/14/19 13:50 Source of Information: Reports: Patient History Limitations: Reports: No Limitations - History of Present Illness INITIAL COMMENTS - FREE TEXT/NARRATIVE: Patient has a h/o Asthma and was diagnosed with Influenza A yesterday. Presents with chest tightness and SOB after shoveling snow this morning. No improvement at home with Albuterol inhaler. Endorses cough and fever x 2-3 days. She admits to smoking cigarettes, does not vape. Onset: Today mid chest Pain Score (Numeric/FACES): 4 - Related Data Allergies Allergy/AdvReac Type Severity Reaction Status Date / Time amoxicillin Allergy Cannot Verified 11/24/18 18:05 Remember azithromycin Allergy Cannot Verified 11/24/18 18:05 [From Zithromax Z-Mehul] Remember cefuroxime axetil Allergy Cannot Verified 11/24/18 18:05 [From Ceftin] Remember ciprofloxacin [From Cipro] Allergy Cannot Verified 11/24/18 18:05 Remember ciprofloxacin HCl Allergy Cannot Verified 11/24/18 18:05 [From Cipro] Remember [place] And Derivatives Allergy Anaphylactic Verified 11/24/18 18:05 Shock dicloxacillin Allergy Cannot Verified 11/24/18 18:05 Remember diphenhydramine Allergy Hives Verified 11/24/18 18:05 [From Benadryl] fluticasone propionate Allergy Cannot Verified 11/24/18 18:05 [From Advair Diskus] Remember guaifenesin Allergy Cannot Verified 11/24/18 18:05 Remember naproxen Allergy Cannot Verified 11/24/18 18:05 Remember omeprazole [From Prilosec] Allergy Cannot Verified 11/24/18 18:05 Remember omeprazole magnesium Allergy Cannot Verified 11/24/18 18:05 [From Prilosec] Remember Penicillins Allergy Cannot Verified 11/24/18 18:05 Remember salmeterol xinafoate Allergy Cannot Verified 11/24/18 18:05 [From Advair Diskus] Remember shellfish derived Allergy Anaphylactic Verified 11/24/18 18:05 Shock Sulfa (Sulfonamide Allergy Cannot Verified 11/24/18 18:05 Antibiotics) Remember venom-honey bee Allergy Anaphylactic Verified 11/24/18 18:05 [bee venom (honey bee)] Shock FLU VACCINE Allergy Cannot Uncoded 11/24/18 18:05 Remember TACO SEASONING Allergy Cannot Uncoded 11/24/18 18:05 Remember Home Meds: Home Meds Ibuprofen 600 mg PO Q6H PRN #20 tablet 08/12/19 [Rx] predniSONE [Prednisone] 60 mg PO DAILY #7 tablet 11/14/19 [Rx] Past Medical History HEENT History: Reports: 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) Other HEENT History: multi caries broken black teeth front upper 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: Reports: Asthma STRESS ANALYST History: Reports: , 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) Other STRESS ANALYST History: ovarion cyst , A3 Musculoskeletal History: Reports: Arthritis, Fracture, 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) Other Musculoskeletal History: hx of R ankle, L hand fractures; R knee and foot dislocation, Neurological History: Reports: Brain Injury Psychiatric History: Reports: Addiction, Mood Swings, Psych Hospitalization(s), Suicide Attempt Other Psychiatric History: hx ETOH & drug abuse, 0 in past 10yrs. Endocrine/Metabolic History: Reports: Obesity/BMI 30+, 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) Other Endocrine/Metabolic History: states that she is always having hypoglycemia - Infectious Disease History Infectious Disease History: Reports: Chicken Pox, Measles, MRSA, Mumps - Past Surgical History HEENT Surgical History: Reports: Adenoidectomy, Myringotomy w Tube(s), Oral Surgery, Tonsillectomy Other HEENT Surgeries/Procedures: tubes in bilat eyes GI Surgical History: Reports: Cholecystectomy Endocrine Surgical History: Reports: None Neurological Surgical History: Reports: 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) Other Neurological Surgeries/Procedures: states 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 Musculoskeletal Surgical History: Reports: None Social & Family History - Family History Family Medical History: Noncontributory - Tobacco Use Smoking Status *Q: Current Every Day Smoker Tobacco Use Within Last Twelve Months: Cigarettes - Caffeine Use Caffeine Use: Reports: Energy Drinks, Soda ED ROS GENERAL - Review of Systems Review Of Systems: Comprehensive ROS is negative, except as noted in HPI. ED EXAM, GENERAL - Physical Exam Exam: See Below Exam Limited By: No Limitations General Appearance: Alert, WD/WN, No Apparent Distress Nose: Normal Inspection Throat/Mouth: Normal Inspection, No Airway Compromise Head: Atraumatic, Normocephalic Neck: Normal Inspection, Full Range of Motion Respiratory/Chest: No Respiratory Distress, Decreased Breath Sounds, Wheezing Cardiovascular: Regular Rate, Rhythm, No Murmur Back Exam: Full Range of Motion Extremities: Normal Range of Motion Neurological: Alert, Oriented, Normal Cognition Psychiatric: Normal Affect, Normal Mood Skin Exam: Warm, Dry, Intact Course - Vital Signs Last Recorded V/S: Last Vital Signs Temp 36.9 C 11/14/19 13:30 Pulse 93 11/14/19 13:30 Resp 22 H 11/14/19 13:30 BP 141/102 H 11/14/19 13:30 Pulse Ox 100 11/14/19 13:30 - Orders/Labs/Meds Orders: Active Orders 24 hr Category Date Time Status RT Aerosol Therapy [RC] ASDIRECTED Care 11/14/19 13:55 Active RT Aerosol Therapy [RC] ASDIRECTED Care 11/14/19 14:49 Active CXR [Chest 2V] [CR] Stat Exams 11/14/19 13:54 Taken Sodium Chloride 0.9% [Saline Flush] Med 11/14/19 13:54 Active 10 ml FLUSH ASDIRECTED PRN Saline Lock Insert [OM.PC] Routine Oth 11/14/19 13:54 Ordered Medication Orders Sodium Chloride (Saline Flush) 10 ml FLUSH ASDIRECTED PRN PRN Reason: Keep Vein Open Last Admin: 11/14/19 14:06 Dose: 10 ml Meds: Medications Generic Name Dose Route Start Last Admin Trade Name Freq PRN Reason Stop Dose Admin Sodium Chloride 10 ml 11/14/19 13:54 11/14/19 14:06 Saline Flush FLUSH 10 ml ASDIRECTED PRN Administration Keep Vein Open Discontinued Medications Generic Name Dose Route Start Last Admin Trade Name Freq PRN Reason Stop Dose Admin Albuterol 2.5 mg 11/14/19 14:49 11/14/19 14:57 Proventil Neb Soln NEB 11/14/19 14:50 2.5 mg ONETIME ONE Administration Albuterol/Ipratropium 3 ml 11/14/19 13:55 11/14/19 14:04 Duoneb 3.0-0.5 Mg/3 Ml NEB 11/14/19 13:56 3 ml ONETIME ONE Administration Dexamethasone 10 mg 11/14/19 13:54 11/14/19 14:06 Dexamethasone IVPUSH 11/14/19 13:55 10 mg ONETIME ONE Administration - Radiology Interpretation Free Text/Narrative:: CXR: No acute process. (ED provider interpretation) - Re-Assessments/Exams Free Text/Narrative Re-Assessment/Exam: 11/14/19 15:28 Patient feels better, wheeze and aeration have improved after Decadron 10mg IV, Duoneb and Albuterol Neb. 11/14/19 15:32 Patient discharged home with Prednisone 20mg starter pack (#8 tabs). Departure - Departure Time of Disposition: 15:28 Disposition: Home, Self-Care 01 Condition: Good Clinical Impression: Influenza A Asthma exacerbation Qualifiers: Asthma severity: moderate Asthma persistence: persistent Qualified Code(s): J45.41 - Moderate persistent asthma with (acute) exacerbation - Discharge Information *PRESCRIPTION DRUG MONITORING PROGRAM REVIEWED*: No *COPY OF PRESCRIPTION DRUG MONITORING REPORT IN PATIENT RUDY: Not Applicable Prescriptions: predniSONE [Prednisone] 60 mg PO DAILY #7 tablet Instructions: Asthma, Adult, Smoking Tobacco Information, Adult, Influenza, Adult, [id number] Referrals: Tessa Barcenas PA-C [Primary Care Provider] - Forms: ED Department Discharge Additional Instructions: Take Prednisone 60mg daily x 5 days. Continue Albuterol inhaler and Tamiflu as directed. Quit smoking. Follow up with your primary physician in 2-3 days. Return to the ER if symptoms worsen. Sepsis Event Note - Focused Exam Vital Signs: Vital Signs Temp Pulse Resp BP Pulse Ox 11/14/19 13:30 36.9 C 93 22 H 141/102 H 100 Date Exam was Performed: 11/14/19 Time Exam was Performed: 15:27 - My Orders Last 24 Hours: My Active Orders 11/14/19 13:54 CXR [Chest 2V] [CR] Stat Sodium Chloride 0.9% [Saline Flush] 10 ml FLUSH ASDIRECTED PRN Saline Lock Insert [OM.PC] Routine 11/14/19 13:55 RT Aerosol Therapy [RC] ASDIRECTED 11/14/19 14:49 RT Aerosol Therapy [RC] ASDIRECTED - Assessment/Plan Last 24 Hours: My Active Orders 11/14/19 13:54 CXR [Chest 2V] [CR] Stat Sodium Chloride 0.9% [Saline Flush] 10 ml FLUSH ASDIRECTED PRN Saline Lock Insert [OM.PC] Routine 11/14/19 13:55 RT Aerosol Therapy [RC] ASDIRECTED 11/14/19 14:49 RT Aerosol Therapy [RC] ASDIRECTED
[2019-11-14] MEDS ORDERED: Albuterol 0.083% 2.5 MG/3 ML Neb Soln NEB ONE (14:49)
[2019-11-14 19:43] VITALS: BP 107/73; PULSE 80
--- NOTE | 2019-11-16 12:33 | CR ---
INDICATION: Short of breath. CHEST, 2 VIEWS: PA and lateral views of the chest were obtained 11/14/19 and revealed the heart and mediastinum to be unremarkable. Very minimal dextroconvex scoliosis at the lower middle thoracic spine is noted. No consolidating pneumonia or effusion was identified. However, there is [id number] bronchial wall cuffing, which may be on the basis of active peribronchial disease and/or fibrosis and should be correlated clinically. MTDD
== END 2019-11-14 15:45 | disposition home or self-care (01) ==
LOC: FB.ED 13:30
DX: J45.41 Moderate persistent asthma with (acute) exacerbation (principal); J10.1 Influenza due to other identified influenza virus with other respiratory manifestations; M19.90 Unspecified osteoarthritis, unspecified site; E66.9 Obesity, unspecified; Z68.29 Body mass index [BMI] 29.0-29.9, adult; F17.210 Nicotine dependence, cigarettes, uncomplicated; Z88.1 Allergy status to other antibiotic agents; Z88.8 Allergy status to other drugs, medicaments and biological substances; Z88.0 Allergy status to penicillin; Z88.2 Allergy status to sulfonamides; Z88.7 Allergy status to serum and vaccine; Z91.030 Bee allergy status; Z91.013 Allergy to seafood; Z91.048 Other nonmedicinal substance allergy status; Z79.899 Other long term (current) drug therapy
CPT/HCPCS: 71046; 94640; 96374; 99285; A9270; J1100; J7620-GY

== ENCOUNTER 2020-05-13 07:17 | Emergency (ER) | payer OTHER ==
[2020-05-13 07:32] VITALS: BP 129/85; PULSE 57
[2020-05-13] MEDS ORDERED: Clindamycin HCl 150 MG Cap PO ONE (07:58)
[2020-05-13] MEDS ORDERED: Ketorolac 60 MG/2 ML SDV IM ONE (07:58)
[2020-05-13] MEDS ORDERED: Lidocaine 2% Viscous Solution 15 ML Cup PO ONE (07:59)
--- NOTE | 2020-05-13 08:06 | EDM.PDOC ---
ED HPI GENERAL MEDICAL PROBLEM - General Chief Complaint: General Stated Complaint: SWOLLEN FACE Time Seen by Provider: 05/13/20 07:45 Source of Information: Reports: Patient History Limitations: Reports: No Limitations - History of Present Illness INITIAL COMMENTS - FREE TEXT/NARRATIVE: c/o dental pain pt with pain in her L maxilla, onset yesterday worse during night, took Tyl x 2 doses which helped a little last saw dentist 10y ago Treatments EXECUTIVE COORDINATOR: Reports: Acetaminophen - Related Data Allergies Allergy/AdvReac Type Severity Reaction Status Date / Time amoxicillin Allergy Cannot Verified 11/24/18 18:05 Remember azithromycin Allergy Cannot Verified 11/24/18 18:05 [From Zithromax Z-Mehul] Remember cefuroxime axetil Allergy Cannot Verified 11/24/18 18:05 [From Ceftin] Remember ciprofloxacin [From Cipro] Allergy Cannot Verified 11/24/18 18:05 Remember ciprofloxacin HCl Allergy Cannot Verified 11/24/18 18:05 [From Cipro] Remember [place] And Derivatives Allergy Anaphylactic Verified 11/24/18 18:05 Shock dicloxacillin Allergy Cannot Verified 11/24/18 18:05 Remember diphenhydramine Allergy Hives Verified 11/24/18 18:05 [From Benadryl] fluticasone propionate Allergy Cannot Verified 11/24/18 18:05 [From Advair Diskus] Remember guaifenesin Allergy Cannot Verified 11/24/18 18:05 Remember naproxen Allergy Cannot Verified 11/24/18 18:05 Remember omeprazole [From Prilosec] Allergy Cannot Verified 11/24/18 18:05 Remember omeprazole magnesium Allergy Cannot Verified 11/24/18 18:05 [From Prilosec] Remember Penicillins Allergy Cannot Verified 11/24/18 18:05 Remember salmeterol xinafoate Allergy Cannot Verified 11/24/18 18:05 [From Advair Diskus] Remember shellfish derived Allergy Anaphylactic Verified 11/24/18 18:05 Shock Sulfa (Sulfonamide Allergy Cannot Verified 11/24/18 18:05 Antibiotics) Remember venom-honey bee Allergy Anaphylactic Verified 11/24/18 18:05 [bee venom (honey bee)] Shock FLU VACCINE Allergy Cannot Uncoded 11/24/18 18:05 Remember TACO SEASONING Allergy Cannot Uncoded 11/24/18 18:05 Remember Home Meds: Home Meds Albuterol Sulfate [Albuterol Sulfate Hfa] 90 mcg INH QID 05/13/20 [History] Clindamycin HCl 300 mg PO TID #21 capsule 05/13/20 [Rx] Lidocaine 2% [Xylocaine 2% Viscous] 15 ml PO ASDIRECTED #1 cup 05/13/20 [Rx] Past Medical History HEENT History: Reports: 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) Other HEENT History: multi caries broken black teeth front upper 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: Reports: Asthma STATISTICAL GENETICIST History: Reports: , 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) Other STATISTICAL GENETICIST History: ovarion cyst , A3 Musculoskeletal History: Reports: Arthritis, Fracture, 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) Other Musculoskeletal History: hx of R ankle, L hand fractures; R knee and foot dislocation, Neurological History: Reports: Brain Injury Psychiatric History: Reports: Addiction, Mood Swings, Psych Hospitalization(s), Suicide Attempt Other Psychiatric History: hx ETOH & drug abuse, 0 in past 10yrs. Endocrine/Metabolic History: Reports: Obesity/BMI 30+, 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) Other Endocrine/Metabolic History: states that she is always having hypoglycemia - Infectious Disease History Infectious Disease History: Reports: Chicken Pox, Measles, MRSA, Mumps - Past Surgical History HEENT Surgical History: Reports: Adenoidectomy, Myringotomy w Tube(s), Oral Surgery, Tonsillectomy Other HEENT Surgeries/Procedures: tubes in bilat eyes GI Surgical History: Reports: Cholecystectomy Endocrine Surgical History: Reports: None Neurological Surgical History: Reports: 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) Other Neurological Surgeries/Procedures: states 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 Musculoskeletal Surgical History: Reports: None Social & Family History - Family History Family Medical History: Noncontributory - Tobacco Use Smoking Status *Q: Current Every Day Smoker Years of Tobacco use: 20 Packs/Tins Daily: 1 - Caffeine Use Caffeine Use: Reports: Energy Drinks, Soda - Recreational Drug Use Recreational Drug Use: No ED ROS GENERAL - Review of Systems Review Of Systems: See Below Constitutional: Reports: No Symptoms HEENT: Reports: Dental Pain Respiratory: Reports: No Symptoms Cardiovascular: Reports: No Symptoms Endocrine: Reports: No Symptoms GI/Abdominal: Reports: No Symptoms : Reports: No Symptoms Musculoskeletal: Reports: No Symptoms Skin: Reports: No Symptoms Neurological: Reports: No Symptoms Psychiatric: Reports: No Symptoms Hematologic/Lymphatic: Reports: No Symptoms Immunologic: Reports: No Symptoms ED EXAM, GENERAL - Physical Exam Exam: See Below Exam Limited By: No Limitations General Appearance: Alert, WD/WN, Mild Distress Nose: Normal Inspection, Normal Mucosa, No Blood Throat/Mouth: Other (deeply eroded teeth up and down, teeth #9-12 are eroded to gingiva, most tender over #11, gingiva not red or swollen, no submandibular LNs altho is tender on the L to palpation, o-p neg) Neck: Normal Inspection, Supple, Non-Tender, Full Range of Motion. No: Lymphadenopathy (R), Lymphadenopathy (L) Respiratory/Chest: No Respiratory Distress Cardiovascular: Regular Rate, Rhythm Course - Vital Signs Last Recorded V/S: Last Vital Signs Temp 36.8 C 05/13/20 07:31 Pulse 57 L 05/13/20 07:31 Resp 16 05/13/20 07:31 BP 129/85 05/13/20 07:31 Pulse Ox 100 05/13/20 07:31 - Orders/Labs/Meds Orders: Active Orders 24 hr Category Date Time Status Ketorolac [Toradol] Med 05/13/20 07:58 Once 60 mg IM ONETIME ONE Lidocaine 2% [Xylocaine 2% Viscous] Med 05/13/20 07:59 Once 15 ml PO ONETIME ONE clindamycin HCL [Cleocin] Med 05/13/20 07:58 Once 300 mg PO ONETIME ONE Departure - Departure Time of Disposition: 08:00 Disposition: Home, Self-Care 01 Condition: Fair Clinical Impression: Dental abscess - Discharge Information *PRESCRIPTION DRUG MONITORING PROGRAM REVIEWED*: Not Applicable *COPY OF PRESCRIPTION DRUG MONITORING REPORT IN PATIENT RUDY: Not Applicable Prescriptions: Clindamycin HCl 300 mg PO TID #21 capsule Lidocaine 2% [Xylocaine 2% Viscous] 15 ml PO ASDIRECTED #1 cup Instructions: Dental Abscess Referrals: Tessa Barcenas PA-C [Primary Care Provider] - Forms: ED Department Discharge, ED Return to Work/School Form Additional Instructions: For infection, take clindamycin 300 mg 1 capsule 3 times a day for 7 days. For infection, put a thin layer of viscous lidocaine on a cotton ball and bite down every hour as needed. For pain, take ibuprofen 200 mg 4 tabs and acetaminophen 500 mg 2 tabs 3 times a day. Eat soft and cool fluid. Use ice and cool liquids. See a dentist in the next week. Sepsis Event Note (ED) - Evaluation Sepsis Screening Result: No Definite Risk - Focused Exam Vital Signs: Vital Signs Temp Pulse Resp BP Pulse Ox 05/13/20 07:31 36.8 C 57 L 16 129/85 100 - My Orders Last 24 Hours: My Active Orders 05/13/20 07:58 Ketorolac [Toradol] 60 mg IM ONETIME ONE clindamycin HCL [Cleocin] 300 mg PO ONETIME ONE 05/13/20 07:59 Lidocaine 2% [Xylocaine 2% Viscous] 15 ml PO ONETIME ONE - Assessment/Plan Last 24 Hours: My Active Orders 05/13/20 07:58 Ketorolac [Toradol] 60 mg IM ONETIME ONE clindamycin HCL [Cleocin] 300 mg PO ONETIME ONE 05/13/20 07:59 Lidocaine 2% [Xylocaine 2% Viscous] 15 ml PO ONETIME ONE
== END 2020-05-13 08:25 | disposition home or self-care (01) ==
LOC: FB.ED 07:17
DX: K04.7 Periapical abscess without sinus (principal); F17.210 Nicotine dependence, cigarettes, uncomplicated; E66.9 Obesity, unspecified; Z68.30 Body mass index [BMI] 30.0-30.9, adult; J45.909 Unspecified asthma, uncomplicated; Z88.1 Allergy status to other antibiotic agents; Z88.8 Allergy status to other drugs, medicaments and biological substances; Z88.2 Allergy status to sulfonamides; Z91.030 Bee allergy status; Z88.0 Allergy status to penicillin; Z91.013 Allergy to seafood
CPT/HCPCS: 96372; 99282; A9270; J1885; 99283

== ENCOUNTER 2020-09-28 18:39 | Emergency (ER) | payer OTHER ==
[2020-09-28] MEDS ORDERED: LORazepam 2 MG/ML SDV IVPUSH STA (18:48)
--- NOTE | 2020-09-28 19:11 | EDM.PDOC ---
ED HPI GENERAL MEDICAL PROBLEM - General Stated Complaint: ASTHMA ATTACK Time Seen by Provider: 09/28/20 18:40 Source of Information: Reports: Patient History Limitations: Reports: No Limitations - History of Present Illness INITIAL COMMENTS - FREE TEXT/NARRATIVE: Patient presented to the ED because of dyspnea. She has some rhinorrhea. nasal congestion and dry cough. She has a history of asthma, used her albuterol inhaler without any relief. En route to the hospital she was given duoneb, solumedrol 125 mg IV x1 with improvement of her breathing. Upper chest Pain Score (Numeric/FACES): 8 - Related Data Allergies Allergy/AdvReac Type Severity Reaction Status Date / Time amoxicillin Allergy Rash, Verified 09/28/20 20:32 Yeast Infection azithromycin Allergy Rash Verified 09/28/20 20:32 [From Zithromax Z-Mehul] cefuroxime axetil Allergy Rash Verified 09/28/20 20:32 [From Ceftin] ciprofloxacin [From Cipro] Allergy Rash Verified 09/28/20 20:32 ciprofloxacin HCl Allergy Rash Verified 09/28/20 20:32 [From Cipro] Fuig And Derivatives Allergy Anaphylactic Verified 09/28/20 20:32 Shock dicloxacillin Allergy Cannot Verified 09/28/20 18:45 Remember diphenhydramine Allergy Hives Verified 09/28/20 20:32 [From Benadryl] fluticasone propionate Allergy Cannot Verified 09/28/20 18:45 [From Advair Diskus] Remember guaifenesin Allergy Cannot Verified 09/28/20 18:45 Remember naproxen Allergy Cannot Verified 09/28/20 18:45 Remember omeprazole [From Prilosec] Allergy Cannot Verified 09/28/20 18:45 Remember omeprazole magnesium Allergy Cannot Verified 09/28/20 18:45 [From Prilosec] Remember Penicillins Allergy Cannot Verified 09/28/20 18:45 Remember salmeterol xinafoate Allergy Cannot Verified 09/28/20 18:45 [From Advair Diskus] Remember shellfish derived Allergy Anaphylactic Verified 09/28/20 18:45 Shock Sulfa (Sulfonamide Allergy Vomiting Verified 09/28/20 20:33 Antibiotics) venom-honey bee Allergy Anaphylactic Verified 09/28/20 18:45 [bee venom (honey bee)] Shock FLU VACCINE Allergy Cannot Uncoded 09/28/20 18:45 Remember TACO SEASONING Allergy Cannot Uncoded 09/28/20 18:45 Remember Home Meds: Home Meds Albuterol Sulfate [Albuterol Sulfate Hfa] 2 puff INH Q4HR PRN 05/13/20 [History] predniSONE [Prednisone] 40 mg PO DAILY #10 tablet 09/28/20 [Rx] Past Medical History HEENT History: Reports: 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) Other HEENT History: multi caries broken black teeth front upper 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: Reports: Asthma DATABASE DEVELOPER History: Reports: , 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) Other DATABASE DEVELOPER History: ovarion cyst , A3 Musculoskeletal History: Reports: Arthritis, Fracture, 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) Other Musculoskeletal History: hx of R ankle, L hand fractures; R knee and foot dislocation, Neurological History: Reports: Brain Injury Psychiatric History: Reports: Addiction, Mood Swings, Psych Hospitalization(s), Suicide Attempt Other Psychiatric History: hx ETOH & drug abuse, 0 in past 10yrs. Endocrine/Metabolic History: Reports: Obesity/BMI 30+, 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) Other Endocrine/Metabolic History: states that she is always having hypoglycemia - Infectious Disease History Infectious Disease History: Reports: Chicken Pox, Measles, MRSA, Mumps - Past Surgical History HEENT Surgical History: Reports: Adenoidectomy, Myringotomy w Tube(s), Oral Surgery, Tonsillectomy Other HEENT Surgeries/Procedures: tubes in bilat eyes GI Surgical History: Reports: Cholecystectomy Endocrine Surgical History: Reports: None Neurological Surgical History: Reports: 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) Other Neurological Surgeries/Procedures: states 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 Musculoskeletal Surgical History: Reports: None Social & Family History - Family History Family Medical History: No Pertinent Family History - Caffeine Use Caffeine Use: Reports: Energy Drinks, Soda ED ROS GENERAL - Review of Systems Review Of Systems: See Below Constitutional: Reports: No Symptoms HEENT: Reports: No Symptoms Respiratory: Reports: Shortness of Breath, Wheezing Cardiovascular: Reports: No Symptoms Endocrine: Reports: No Symptoms GI/Abdominal: Reports: No Symptoms : Reports: No Symptoms Musculoskeletal: Reports: No Symptoms Skin: Reports: No Symptoms Neurological: Reports: No Symptoms Psychiatric: Reports: No Symptoms ED EXAM, GENERAL - Physical Exam Exam: See Below Exam Limited By: No Limitations General Appearance: Alert, No Apparent Distress Ears: Normal External Exam, Normal Canal Nose: Normal Inspection, Normal Mucosa Throat/Mouth: Normal Inspection, Normal Lips, Normal Teeth Head: Atraumatic, Normocephalic Respiratory/Chest: No Respiratory Distress, Wheezing Cardiovascular: Normal Peripheral Pulses, Regular Rate, Rhythm, No Edema GI/Abdominal: Normal Bowel Sounds, Soft, Non-Tender, No Organomegaly Back Exam: Normal Inspection, Full Range of Motion Extremities: Normal Inspection, Normal Range of Motion, Non-Tender Neurological: Alert, Oriented, CN II-XII Intact, Normal Cognition Course - Vital Signs Text/Narrative:: She did improved with duoneb, solumedrol 125 mg IV Ativan 1 mg IV x1 Last Recorded V/S: Last Vital Signs Temp 36.8 C 09/28/20 19:25 Pulse 85 09/28/20 19:25 Resp 18 09/28/20 19:25 BP 118/67 09/28/20 19:25 Pulse Ox 98 09/28/20 19:25 - Orders/Labs/Meds Orders: Active Orders 24 hr Category Date Time Status Oxygen Therapy Adult [Oxygen Therapy, ED] [] Care 09/28/20 18:39 Active ASDIRECTED Meds: Medications Discontinued Medications Generic Name Dose Route Start Last Admin Trade Name Freq PRN Reason Stop Dose Admin Lorazepam 1 mg 09/28/20 18:48 09/28/20 19:12 Ativan IVPUSH 09/28/20 18:49 1 mg NOW STA Administration Sodium Chloride 10 ml 09/28/20 19:14 09/28/20 19:15 Saline Flush FLUSH 10 ml ASDIRECTED PRN Administration Keep Vein Open Departure - Departure Time of Disposition: 19:10 Disposition: Home, Self-Care 01 Condition: Good Clinical Impression: Asthma exacerbation, Anxiety attack - Discharge Information Prescriptions: predniSONE [Prednisone] 40 mg PO DAILY #10 tablet Instructions: Asthma, Adult, [id number] Referrals: PCP,None [Primary Care Provider] - Forms: ED Department Discharge Additional Instructions: Please read discharge instructions on Asthma exacerbation Increase oral fluids Albuterol inhaler-2 puffs every 4-6 hours as needed for shortness of breath Prednisone 20 mg, take 2 tablet daily for 5 days Follow up as needed Sepsis Event Note (ED) - Focused Exam Vital Signs: Vital Signs Temp Temp Pulse Pulse Resp BP BP 09/28/20 19:25 36.8 C 85 18 118/67 09/28/20 19:00 83 20 127/64 09/28/20 18:45 09/28/20 18:39 36.3 C 89 20 116/76 Pulse Ox Pulse Ox 09/28/20 19:25 98 09/28/20 19:00 100 100 09/28/20 18:45 100 09/28/20 18:39 100 100 - My Orders Last 24 Hours: My Active Orders 09/28/20 18:39 Oxygen Therapy Adult [Oxygen Therapy, ED] [RC] ASDIRECTED - Assessment/Plan Last 24 Hours: My Active Orders 09/28/20 18:39 Oxygen Therapy Adult [Oxygen Therapy, ED] [RC] ASDIRECTED
[2020-09-28] MEDS ORDERED: Sodium Chloride 0.9% 10 ML Syringe FLUSH PRN (19:14)
[2020-09-28 20:30] VITALS: BP 127/64; PULSE 83
== END 2020-09-28 19:35 | disposition home or self-care (01) ==
LOC: FB.ED 18:39
DX: J45.901 Unspecified asthma with (acute) exacerbation (principal); F41.9 Anxiety disorder, unspecified; J45.909 Unspecified asthma, uncomplicated; E66.9 Obesity, unspecified; Z68.28 Body mass index [BMI] 28.0-28.9, adult; Z88.8 Allergy status to other drugs, medicaments and biological substances; Z88.0 Allergy status to penicillin; Z88.1 Allergy status to other antibiotic agents; Z91.018 Allergy to other foods; Z91.013 Allergy to seafood; Z88.2 Allergy status to sulfonamides; Z88.7 Allergy status to serum and vaccine; Z91.030 Bee allergy status; Z91.048 Other nonmedicinal substance allergy status; Z79.899 Other long term (current) drug therapy
CPT/HCPCS: 96374; 99285-25; J2060

== ENCOUNTER 2021-03-26 08:35 | Emergency (ER) | payer SELFPAY ==
--- NOTE | 2021-03-26 08:55 | EDM.PDOC ---
ED HPI GENERAL MEDICAL PROBLEM - General Chief Complaint: ENT Problem Stated Complaint: MOUTH INFECTION/MOUTH PAIN Time Seen by Provider: 03/26/21 08:50 Source of Information: Reports: Patient History Limitations: Reports: No Limitations - History of Present Illness INITIAL COMMENTS - FREE TEXT/NARRATIVE: Presents with worsening dental pain x 1 week. No relief with Tylenol, Ibuprofen, or Anbesol. Patient cannot localize the pain, states that all of her teeth are bad. Denies fevers. Duration: Week(s): (1) Quality: Reports: Ache Severity: Moderate Treatments PHYSICIAN OFFICE ASSISTANT: Reports: Acetaminophen, NSAIDS - Related Data Allergies Allergy/AdvReac Type Severity Reaction Status Date / Time amoxicillin Allergy Rash, Verified 09/28/20 20:32 Yeast Infection azithromycin Allergy Rash Verified 09/28/20 20:32 [From Zithromax Z-Mehul] cefuroxime axetil Allergy Rash Verified 09/28/20 20:32 [From Ceftin] ciprofloxacin [From Cipro] Allergy Rash Verified 09/28/20 20:32 ciprofloxacin HCl Allergy Rash Verified 09/28/20 20:32 [From Cipro] [place] And Derivatives Allergy Anaphylactic Verified 09/28/20 20:32 Shock dicloxacillin Allergy Cannot Verified 09/28/20 18:45 Remember diphenhydramine Allergy Hives Verified 09/28/20 20:32 [From Benadryl] fluticasone propionate Allergy Cannot Verified 09/28/20 18:45 [From Advair Diskus] Remember guaifenesin Allergy Cannot Verified 09/28/20 18:45 Remember naproxen Allergy Cannot Verified 09/28/20 18:45 Remember omeprazole [From Prilosec] Allergy Cannot Verified 09/28/20 18:45 Remember omeprazole magnesium Allergy Cannot Verified 09/28/20 18:45 [From Prilosec] Remember Penicillins Allergy Cannot Verified 09/28/20 18:45 Remember salmeterol xinafoate Allergy Cannot Verified 09/28/20 18:45 [From Advair Diskus] Remember shellfish derived Allergy Anaphylactic Verified 09/28/20 18:45 Shock Sulfa (Sulfonamide Allergy Vomiting Verified 09/28/20 20:33 Antibiotics) venom-honey bee Allergy Anaphylactic Verified 09/28/20 18:45 [bee venom (honey bee)] Shock FLU VACCINE Allergy Cannot Uncoded 09/28/20 18:45 Remember TACO SEASONING Allergy Cannot Uncoded 09/28/20 18:45 Remember Home Meds: Home Meds Albuterol Sulfate [Albuterol Sulfate Hfa] 2 puff INH Q4HR PRN 05/13/20 [History] predniSONE [Prednisone] 40 mg PO DAILY #10 tablet 09/28/20 [Rx] Hydrocodone/Acetaminophen [Hydrocodon-Acetaminophen 5-325] 1 - 2 each PO Q6H PRN #12 tablet 03/26/21 [Rx] clindamycin HCL [Cleocin] 300 mg PO QID #40 cap 03/26/21 [Rx] Past Medical History HEENT History: Reports: 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) Other HEENT History: Multiple caries, broken black teeth front upper. 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: Reports: Asthma DATABASE ADMINISTRATOR History: Reports: , 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) Other DATABASE ADMINISTRATOR History: Ovarion cyst. A3. Musculoskeletal History: Reports: Arthritis, Fracture, 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) Other Musculoskeletal History: History of right ankle and left hand fractures. Right knee and foot dislocation. Neurological History: Reports: Brain Injury Psychiatric History: Reports: ADHD, Addiction, Anxiety, Mood Swings, Psych Hospitalization(s), Suicide Attempt Other Psychiatric History: History ETOH & drug abuse. Endocrine/Metabolic History: Reports: Hypokalemia, Obesity/BMI 30+, 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) Other Endocrine/Metabolic History: Hypoglycemia. - Infectious Disease History Infectious Disease History: Reports: Chicken Pox, Measles, MRSA, Mumps - Past Surgical History HEENT Surgical History: Reports: Adenoidectomy, Myringotomy w Tube(s), Oral Surgery, Tonsillectomy Other HEENT Surgeries/Procedures: Tubes in bilateral. GI Surgical History: Reports: Cholecystectomy Neurological Surgical History: Reports: 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) Other Neurological Surgeries/Procedures: States she had fluid drained from brain abscess one time. Social & Family History - Family History Family Medical History: No Pertinent Family History - Caffeine Use Caffeine Use: Reports: Energy Drinks, Soda ED ROS ENT - Review of Systems Review Of Systems: Comprehensive ROS is negative, except as noted in HPI. ED EXAM, ENT - Physical Exam Exam: See Below Exam Limited By: No Limitations General Appearance: Alert, WD/WN, No Apparent Distress Ears: Normal External Exam Nose: Normal Inspection Mouth/Throat: Normal Oropharynx, Dental Pain, Dental Tenderness (most teeth), Other (widespread dental caries). No: Dental Abcess, Gum Swelling, Lip Swelling, Muffled Voice, Oral Ulcers, Peritonsillar Mass, Pharyngeal Erythema, Throat Swelling, Tongue Swelling, Uvular Edema Head: Atraumatic, Normocephalic Neck: Supple Respiratory/Chest: No Respiratory Distress, Lungs Clear, Normal Breath Sounds Cardiovascular: Regular Rate, Rhythm, No Murmur Back: Full Range of Motion Extremities: Normal Range of Motion Neurological: Alert, Normal Cognition Skin: Warm, Dry, Intact, Normal Color Departure - Departure Time of Disposition: 08:53 Disposition: Home, Self-Care 01 Condition: Good Clinical Impression: Pain due to dental caries - Discharge Information *PRESCRIPTION DRUG MONITORING PROGRAM REVIEWED*: Yes *COPY OF PRESCRIPTION DRUG MONITORING REPORT IN PATIENT RUDY: Not Applicable Prescriptions: clindamycin HCL [Cleocin] 300 mg PO QID #40 cap Hydrocodone/Acetaminophen [Hydrocodon-Acetaminophen 5-325] 1 - 2 each PO Q6H PRN #12 tablet PRN Reason: Pain Instructions: Diet and Dental Disease Forms: ED Department Discharge Additional Instructions: Fill the prescriptions for Clindamycin and Mobile and take as directed. You may also take OTC Ibuprofen, but do not take Acetaminophen while taking Mobile. Follow up with a Dentist as soon as possible.
[2021-03-26] MEDS: Acetaminophen/HYDROcodone 325-5 MG Tab PO ONE (09:22)
[2021-03-26 10:24] VITALS: BP 143/92; PULSE 58
== END 2021-03-26 09:25 | disposition home or self-care (01) ==
LOC: FB.ED 08:35
DX: K02.9 Dental caries, unspecified (principal); E66.9 Obesity, unspecified; Z68.30 Body mass index [BMI] 30.0-30.9, adult; Z68.25 Body mass index [BMI] 25.0-25.9, adult; Z88.0 Allergy status to penicillin; Z88.1 Allergy status to other antibiotic agents; Z88.2 Allergy status to sulfonamides; Z88.5 Allergy status to narcotic agent; Z91.013 Allergy to seafood; Z91.030 Bee allergy status; Z88.6 Allergy status to analgesic agent
CPT/HCPCS: 99282; A9270

== ENCOUNTER 2023-09-11 15:17 | Emergency (ER) | payer MEDICAID ==
[2023-09-11] MEDS ORDERED: Diphtheria,Pertussis(Acell),Tetanus Vaccine 0.5 ML Syringe IM ONE (16:16)
[2023-09-11] MEDS ORDERED: Ketorolac 30 MG/ML SDV IM ONE (17:26)
[2023-09-11 17:28] VITALS: BP 122/66; PULSE 56
== END 2023-09-11 17:37 | disposition home or self-care (01) ==
LOC: FB.ED 15:17
DX: S06.0X0A Concussion without loss of consciousness, initial encounter (principal); S05.12XA Contusion of eyeball and orbital tissues, left eye, initial encounter; S00.412A Abrasion of left ear, initial encounter; J45.909 Unspecified asthma, uncomplicated; E66.9 Obesity, unspecified; F17.200 Nicotine dependence, unspecified, uncomplicated; Z79.899 Other long term (current) drug therapy; Z88.0 Allergy status to penicillin; Z88.1 Allergy status to other antibiotic agents; Z88.2 Allergy status to sulfonamides; Z88.5 Allergy status to narcotic agent; Z88.6 Allergy status to analgesic agent; Z88.7 Allergy status to serum and vaccine; Z23 Encounter for immunization; Z91.048 Other nonmedicinal substance allergy status; Z91.030 Bee allergy status; Z91.013 Allergy to seafood; Z88.8 Allergy status to other drugs, medicaments and biological substances; Y04.0XXA Assault by unarmed brawl or fight, initial encounter
CPT/HCPCS: 70450; 70486; 90471; 90715; 96372; 99283; 99284-25; J1885